=== PATIENT | male | born 1960 | race Caucasian/White ===

== ENCOUNTER 2024-05-24 08:54 | Emergency (ER) | payer OTHER, MEDICARE, SELFPAY ==
[2024-05-24 09:02] VITALS: BP 153/75
[2024-05-24 09:27] VITALS: BMI 24.0
[2024-05-24 09:30] VITALS: BP 126/75
--- NOTE | 2024-05-24 09:31 | ED.GENMED ---
History of Present Illness
General
Chief Complaint: Chest Pain
Source: patient
Time Seen by Provider: 05/24/24 09:04
History of Present Illness
History of Present Illness:
64yoM with a history of type 2 diabetes and hyperlipidemia presenting for evaluation of chest pain. Symptoms initially started 3 days ago while he was sitting. He reports a discomfort in his left chest. The discomfort is hard for him to describe
but he states it feels like 'something is there.' The symptoms are intermittent over the past several days and have occurred about 3-4 times. The pain typically last for several minutes before resolving. Nothing seems to make the pain come on and
nothing seems to make the pain better or worse. He had a weird feeling in his left upper arm yesterday. He has not had any chest pain today. He denies any associated diaphoresis, nausea, vomiting, shortness of breath, dizziness, paresthesias. No
prior history of coronary artery disease and he has never seen a retail pos specialist before.
Past History
Past History
ED Past Medical History: Cancer (Skin cancer), Hypercholesterolemia and NIDDM
ED Past Surgical History: Other
Social History
Tobacco: Non-smoker
Alcohol: Other
Personal: Other
Living: with family
Employment: Employed
Family History
Family History: Other
Phy Exam
General Physical Exam
General Presentation: well appearing and no apparent distress
General age: appears stated age
General Skin: warm and dry
General Habitus: normal
General Mental: alert
General Hydration: appears well hydrated
ENT Exam
ENT Exam: normocephalic
Cardiovascular Exam
Cardiovascular Exam: regular rate/rhythm, no edema, no murmur and normal peripheral pulses (2+ radial pulses bilaterally)
Pulmonary Exam
Pulmonary Exam: lungs clear, no respiratory distress, no rales, no crackles, no rhonchi and no wheezing
Neurological Exam
Neurological Exam: alert
[place] Coma Scale
Eye Opening: Spontaneous
Verbal Response: Oriented
Motor Response: Obeys Commands
GCS Total Score: 15
Skin Exam
Skin Exam: normal color and warm/dry
Psychiatric Exam
Psychiatric Exam: normal mood/affect
Scores
Heart Score for Chest Pain Patients
STEMI patient?: No
History: Moderately Suspicious
ECG: Normal
Age: >/= 65 years
Risk Factors: 1 or 2 Risk Factors
Troponin: </= Normal Limit
Heart Score for Chest Pain Patients: 4
Heart Score Risk: 20.3% MACE over next 6 weeks
Course
Orders/Labs/Results
Orders:
Orders
05/24/24 08:55
ECG [Electrocardiogram (*1)] Urgent
Reason for Study: Chest Pain
EKG- Treatment ONCE
05/24/24 09:30
Cardiac Monitoring- Treatment ONCE
05/24/24 09:31
CBC/With Diff [Complete Blood Count/With Diff] Urgent
CMP [Comprehensive Metabolic Panel] Urgent
Troponin I Urgent
CR Chest - 2 Views Urgent
Comment:
Reason For Exam: CP
Abnormal Lab Results
05/24/24
09:31
RBC 4.29 L 10^6/uL
(4.70-6.10)
MCV 94.4 H fL
(80.0-94.0)
MCH 32.2 H pg
(27.0-31.0)
Absolute Eos (auto) 0.9 H 10^3/uL
(0-0.7)
Eosinophils % 11.0 H %
(0-6)
BUN 27 H mg/dl
(9-20)
Glucose 172 H mg/dl
(70-99)
05/24/24 09:31
05/24/24 09:31
Vital Signs
Initial and Last Documented VS:
Initial Vital Signs
Temp Pulse BP Pulse Ox
98 F 74 153/75 98
05/24/24 09:02 05/24/24 09:02 05/24/24 09:02 05/24/24 09:02
Last Documented Vital Signs
Temp Pulse Resp BP Pulse Ox
98 F 74 16 121/73 97
05/24/24 09:02 05/24/24 10:30 05/24/24 10:30 05/24/24 10:06 05/24/24 10:30
MDM/Problems Addressed
Differential Diagnosis Includes:
64yoM here with intermittent chest discomfort x several days. Seems to come on randomly. No exertional symptoms. Lasts several minutes at a time. Asymptomatic currently. No associated n/v, SOB, diaphoresis. Hx of T2DM. VSS. He is well appearing in
no distress. Exam is reassuring. Differential diagnosis includes but is not limited to: ACS, stable angina, pneumonia, arrhythmia, nonspecific chest pain, less likely PE
Initial ED plan: Check cardiac labs, EKG, and CXR.
*EKG
Interpreted by ED Provider?: Yes
EKG Intrepretation Date: 05/24/24
Heart Rate: 69
Rate: normal
Rhythm: sinus
[place]: normal axis
Interval: normal interval
QRS Pattern: normal QRS
Ischemia: no ischemia
*Critical Care Note
Total Time (30-74mins, 75-104mins- exclusive of procedures): Not Applicable
Update Note
Update Note:
EKG shows NSR without ischemic changes and troponin is WNL. Remainder of labs unremarkable. CXR is clear. He continues to be asymptomatic on reassessment. No indication for hospitalization at this time. Given risk factors, will refer to cardiology
for f/u. Strict ED return precautions discussed. He expressed understanding and is in agreement with plan. He was discharged in stable condition.
ED Attending Note
-
Portions of this chart may have been created with voice recognition software.� Occasional wrong word or��sound alike� substitutions may have occurred due to the inherent limitations of voice recognition software.
Discharge Plan
Departure
Patient Disposition: Home (Routine Discharge)
Date of Disposition: 05/24/24
Time of Disposition: 10:39
Patient with high blood pressure during this ER visit?: No
Discharge Problem:
Chest pain
Instructions: Chest Pain CBC Follow Up
Prescriptions:
No Action
multivitamin Tablet
1 tab PO DAILY
metformin 500 mg Tablet
500 mg PO AC
glipizide 10 mg Tablet Extended Release 24hr
10 mg PO DAILY
Fish Oil Capsule
1,000 mg PO DAILY
rosuvastatin 20 mg Tablet
20 mg PO HS
Januvia 100 mg Tablet
100 mg PO DAILY
mecobalamin (vitamin B12) 1,000 mcg Tablet,Chewable
1,000 mcg PO DAILY
aspirin 81 mg Capsule
81 mg PO DAILY
tadalafil 10 mg Tablet
10 mg PO DAILY PRN (Reason: ED)
oxycodone 5 mg tablet
5 mg PO Q4HPRN PRN (Reason: moderate to severe pain) Qty: 14 0RF
Rx Instructions:
OK to take 2 if needed
Referrals:
Maggi Walton CRNP [Family Provider] -
David Kahn MD [Active] -
Activity Restrictions/Additional Instructions:
Please call today to schedule a follow-up with your family doctor and cardiology. Return to the ER with any new or worsening symptoms.
Interventions
Interventions:
*Risk Screen - Suicide Last Done: 05/24/24 09:03
*General Assessment Last Done: 05/24/24 09:28
*Neglect/Abuse Screening Last Done: 05/24/24 09:03
*ED COVID-19 Vaccine History Last Done: 05/24/24 09:28
*Nursing Disposition Last Done: 05/24/24 10:45
ED- Cardiac Assessment Last Done: 05/24/24 09:28
Discharge Date and Time
Discharge Date/Time: 05/24/24 10:49
Print Language: BENINESE
[2024-05-24 09:49] LABS: % Basophils 0.8 % (0-2); % Immature Granulocytes 0.4 % (0-0.5); % Lymphocytes 20.8 % (20.5-51.1); % Monocytes 7.3 % (1.7-9.3); % Neutrophils 59.7 % (42.2-75.2); Absolute Basophils 0.1 10^3/uL (0-0.2); Absolute Eosinophils 0.9 10^3/uL (0-0.7); Absolute Lymphocytes 1.8 10^3/uL (1.2-3.4); Absolute Monocytes 0.6 10^3/uL (0.1-0.6); Absolute Neutrophils 5.1 10^3/uL (1.4-6.5); Hematocrit 40.5 % (39.0-52.0); Hemoglobin 13.8 g/dL (13.0-18.0); Mean Corp Hgb Conc. 34.1 g/dL (33.0-37.0); Mean Corpuscular Hgb 32.2 pg (27.0-31.0); Mean Corpuscular Volume 94.4 fL (80.0-94.0); Mean Platelet Volume 10.1 fL (7.4-10.4); Nucleated Red Blood Cells % 0 % (-); Platelet Count 203 10^3/uL (130-400); Red Blood Cell Count 4.29 10^6/uL (4.70-6.10); Red Cell Dist. Width 13.1 % (11.5-14.5); White Blood Cell Count 8.5 10^3/uL (4.8-10.8)
[2024-05-24 10:06] VITALS: BP 121/73
[2024-05-24 10:08] LABS: ALT (SGPT) 25 U/L (0-50); AST (SGOT) 20 U/L (17-59); Albumin 4.8 g/dl (3.5-5.0); Alkaline Phosphatase 57 U/L (38-126); Blood Urea Nitrogen 27 mg/dl (9-20); Calcium 9.7 mg/dl (8.4-10.2); Carbon Dioxide 28 mmol/L (22-30); Chloride 100 mmol/L (98-107); Estimated Creatinine Clearance 92 ml/min; Glucose 172 mg/dl (70-99); Potassium 4.8 mmol/L (3.5-5.1); Sodium 138 mmol/L (135-145); Total Bilirubin 0.3 mg/dl (0.2-1.3); Total Protein 7.4 g/dl (6.3-8.2); eGFR > 60.00
[2024-05-24 10:13] LABS: Troponin I < 0.012 ng/ml
== END 2024-05-24 10:49 | disposition home or self-care (01) ==
LOC: EMR 08:54
PROVIDERS: Physician Assistant; EMERGENCY PHYSICIAN Emergency Medicine; FAMILY PHYSICIAN Nurse Practitioner Family
DX: R07.89 Other chest pain (principal); E78.00 Pure hypercholesterolemia, unspecified; E11.9 Type 2 diabetes mellitus without complications
CPT/HCPCS: 99285; 71046; 80053; 84484; 85025; 93005

== ENCOUNTER → 2024-06-08 07:37 | Outpatient (REF) | payer OTHER, SELFPAY | LOC: DHCBC/DCA 07:37 | PROVIDERS: ATTENDING PHYSICIAN Internal Medicine; FAMILY PHYSICIAN Nurse Practitioner Family | DX: R07.9 Chest pain, unspecified (principal) | CPT/HCPCS: 78452; 93017; A9500 ==

== ENCOUNTER → 2024-06-09 09:16 | Outpatient (REF) | payer OTHER, SELFPAY | LOC: HWRCS 09:16 | PROVIDERS: ATTENDING PHYSICIAN Internal Medicine; FAMILY PHYSICIAN Nurse Practitioner Family | DX: R07.9 Chest pain, unspecified (principal) | CPT/HCPCS: 93306 ==

== ENCOUNTER 2024-06-18 07:18 | Day surgery (SDC) | payer OTHER, SELFPAY ==
[2024-06-18] VITALS (15 sets, daily range): BP systolic 106–134; BP diastolic 67–94; BMI 24.2
[2024-06-18 08:15] LABS: Glucose - Point of Care 140 mg/dl (70-99)
[2024-06-18 09:30] LABS: ACT-LR - POC 310 Seconds (116-155)
--- NOTE | 2024-06-18 17:43 | ITS.CL.PN ---
Economics Professor - Procedure Note
Procedure
Procedure Note:
CARDIAC CATHETERIZATION REPORT
Date of Procedure: 06/18/2024
Referring: Dr. Gavin Dent MD
Indication: chest pain, abnormal nuclear stress test
PROCEDURE(S)
1. left heart catheterization
2. coronary angiography
ACCESS: 6F right radial artery (closure: radial band)
CATHETERS
1. 6F JL3.5
2. 6F JR4
HEMODYNAMIC DATA
LV 127/4 (EDP 10) mmHg
AO 124/73 (mean 90) mmHg
CORONARY ANGIOGRAPHY
Dominance: right
LM: Large with mild disease
LAD: Large vessel giving rise to a small D1 and trifurcating D2. Just before the takeoff of D2, there is a 60% eccentric stenosis (best seen in SYED cranial). This was further interrogated by iFR.
LCx: Large vessel giving rise to a small OM1, moderate caliber OM 2, and large OM 3. There is a 95% ostial stenosis, and a 90% stenosis before the takeoff of OM 2.
RCA: Large vessel giving rise to a moderate caliber RPDA, moderate caliber RPL 1, and small RPL 2. There is a smooth 80% stenosis in the mid RCA and otherwise mild disease.
iFR of LAD
An Omni wire was flushing and zeroed outside the body and then advanced to the mid LAD. The wire introducer was removed and the system flush, after which pressure of the wire and guide were normalized. The wire was advanced to the mid LAD and iFR
recorded at 0.84, 0.85, and 0.86. iFR pullback was performed noting a focal pattern with nearly the entire contribution located at the lesion of interest. On return to the left main, iFR appropriately normalized to ~1.0, confirming lack of wire
drift. The wire and guide were removed.
RADIATION: dose for 31 mGy; DAP 25.1 Gy*cm2; fluoroscopy time 5.4 min
CONCLUSIONS
1. severe multivessel coronary artery disease in a diabetic patient
2. normal LV filling pressure and no gradient across the aortic valve
RECOMMENDATIONS
1. expectant management after cardiac catheterization via right radial approach
2. referral for coronary artery bypass grafting, with consideration of grafts to the LAD, circumflex OM, and RPDA.
3. aggressive secondary prevention of coronary artery disease
Copy to: Dr. Gavin Dent MD (architecture instructor); APZ Rhodes (PCP)
Signed: Milo Ma MD, PhD
== END 2024-06-18 13:16 | disposition home or self-care (01) ==
LOC: CATH 07:18
PROVIDERS: ATTENDING PHYSICIAN Student in an Organized Health Care Education/Training Program; CONSULT PHYSICIAN Thoracic Surgery (Cardiothoracic Vascular Surgery)
DX: R07.9 Chest pain, unspecified (principal); I25.10 Atherosclerotic heart disease of native coronary artery without angina pectoris; E78.00 Pure hypercholesterolemia, unspecified; E11.9 Type 2 diabetes mellitus without complications; Z85.828 Personal history of other malignant neoplasm of skin; Z79.82 Long term (current) use of aspirin; Z79.84 Long term (current) use of oral hypoglycemic drugs
CPT/HCPCS: 93799; C1894; C1769; 82962; 85347; 93458; Q9967

== ENCOUNTER → 2024-07-09 08:10 | Outpatient (REF) | payer OTHER, SELFPAY | LOC: HWRAD 08:10 | PROVIDERS: ATTENDING PHYSICIAN Thoracic Surgery (Cardiothoracic Vascular Surgery); FAMILY PHYSICIAN Nurse Practitioner Family | DX: Z01.810 Encounter for preprocedural cardiovascular examination (principal) | CPT/HCPCS: 71250 ==

== ENCOUNTER 2024-07-15 04:53 | Inpatient (IN) | payer OTHER, SELFPAY ==
[2024-07-13 08:33] VITALS: BMI 23.3
[2024-07-13 09:22] LABS: % Basophils 0.5 % (0-2); % Eosinophils 1.5 % (0-6); % Immature Granulocytes 0.4 % (0-0.5); % Lymphocytes 19.2 % (20.5-51.1); % Monocytes 7.1 % (1.7-9.3); % Neutrophils 71.3 % (42.2-75.2); Absolute Eosinophils 0.1 10^3/uL (0-0.7); Absolute Lymphocytes 1.6 10^3/uL (1.2-3.4); Absolute Monocytes 0.6 10^3/uL (0.1-0.6); Absolute Neutrophils 5.9 10^3/uL (1.4-6.5); Hematocrit 38.1 % (39.0-52.0); Hemoglobin 12.9 g/dL (13.0-18.0); Mean Corp Hgb Conc. 33.9 g/dL (33.0-37.0); Mean Corpuscular Hgb 31.8 pg (27.0-31.0); Mean Corpuscular Volume 93.8 fL (80.0-94.0); Mean Platelet Volume 9.7 fL (7.4-10.4); Nucleated Red Blood Cells % 0 % (-); Platelet Count 196 10^3/uL (130-400); Red Blood Cell Count 4.06 10^6/uL (4.70-6.10); Red Cell Dist. Width 12.4 % (11.5-14.5); White Blood Cell Count 8.2 10^3/uL (4.8-10.8)
[2024-07-13 09:25] LABS: Urine Albumin Trace (Neg - Trace); Urine Bilirubin Negative (Negative); Urine Character Clear (Clear); Urine Color Yellow; Urine Glucose Negative (Negative); Urine Ketone Negative (Negative); Urine Leukocyte Negative (Negative); Urine Nitrite Negative (Negative); Urine Occult Blood 1+ (Negative); Urine Specific Gravity 1.025 (<1.030); Urine Urobilinogen Negative (Neg - 1+)
[2024-07-13 09:33] LABS: Urine Bacteria Few (Negative); Urine Red Blood Cell 0-2 /HPF (0-2); Urine Squamous Cell 0-2 /LPF (Few); Urine White Cell 0-2 /HPF (0-5)
[2024-07-13 09:43] LABS: INR 1.11; PT 14.6 Sec (11.4-14.6)
[2024-07-13 09:44] LABS: APTT 34.9 Sec (23.4-35.0)
[2024-07-13 10:01] LABS: ALT (SGPT) 35 U/L (0-50); AST (SGOT) 24 U/L (17-59); Albumin 4.6 g/dl (3.5-5.0); Alkaline Phosphatase 51 U/L (38-126); Blood Urea Nitrogen 24 mg/dl (9-20); Calcium 9.1 mg/dl (8.4-10.2); Carbon Dioxide 25 mmol/L (22-30); Chloride 103 mmol/L (98-107); Direct Bilirubin 0.1 mg/dl (0.0-0.4); Estimated Creatinine Clearance 104 ml/min; Glucose 121 mg/dl (70-99); Potassium 4.7 mmol/L (3.5-5.1); Sodium 138 mmol/L (135-145); Total Bilirubin 0.4 mg/dl (0.2-1.3); Total Protein 7.1 g/dl (6.3-8.2); eGFR > 60.00
--- NOTE | 2024-07-13 10:24 | CM ---
pt gave verbal consent for to run SPT labs, due to his microfilm technician being stuck while drawing his labs. he understands we are running tests for HIV and Hep B/C.
--- NOTE | 2024-07-13 10:35 | CM ---
Chart reviewed. Met with the patient in PAT. 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 He has a roommate, but his girlfriend will also be staying with him after surgery. Patient
lives in a split level home, 5 CHICA, 0 DME. Reviewed preoperative and postoperative instructions and restrictions, along with showering guidelines. Gave patient 2 soaps. Patient is agreeable to a home visit by CT Transitional RN. Plan is for the
patient to return home with CT Transitional RN.
[2024-07-13 10:47] LABS: Glycohemoglobin (HgbA1c) 6.4 % (4.0-5.6)
[2024-07-13 11:36] LABS: Hepatitis B Surface Antigen Negative (Negative)
[2024-07-13 11:44] LABS: HIV Combo Negative (Negative)
[2024-07-13 11:53] LABS: Hepatitis C Antibody Negative (Negative)
[2024-07-15] VITALS (11 sets, daily range): BP systolic 88–121; BP diastolic 57–74; BMI 22.5
[2024-07-15] MEDS: MAGNESIUM OXIDE 500 MG PO (05:40)
[2024-07-15] MEDS: PROTONIX 40 MG PO (05:40)
[2024-07-15] MEDS: LOPRESSOR 25 MG PO (05:40)
[2024-07-15] MEDS: BACTROBAN 2% OINTMENT 1 APPLIC NASAL ×2 (05:41→19:48)
--- NOTE | 2024-07-15 06:00 | PTCARENOTE ---
pt admitted into CVICU room 2261. pt confirmed 2 CHG showers at home. pt clipped and prepped for CABG. pre-op meds given. pre-op education provided. questions answered. electronic health records specialist to [facility].
[2024-07-15 07:43] LABS: ACT+ - POC 101 Seconds (82-134)
[2024-07-15 08:14] LABS: Urine Albumin Negative (Neg - Trace); Urine Bilirubin Negative (Negative); Urine Character Clear (Clear); Urine Color Straw; Urine Glucose Negative (Negative); Urine Ketone Negative (Negative); Urine Leukocyte Negative (Negative); Urine Nitrite Negative (Negative); Urine Occult Blood Negative (Negative); Urine Urobilinogen Negative (Neg - 1+)
[2024-07-15 09:38] LABS: ACT+ - POC 535 Seconds (82-134)
[2024-07-15 10:12] LABS: B.E. - POC -1.7 mmol/L; Glucose - POC 133 mg/dl (70-99); HCO3 - POC 23 mmol/L (21-28); Hematocrit - POC 34 % PCV (42-52); Hemodilution- POC No; Hemoglobin Calculated - POC 11.6; Ionized Calcium - POC 1.19 mmol/L (1.15-1.33); O2 Saturation %Calculated-POC 99.9 % (94-98); PCO2 - POC 37 mmHg (35-48); PO2 - POC 299 mmHg (83-108); Sodium - POC 142 mmol/L (136-145); Specimen Type - POC Arterial; pH - POC 7.39 (7.35-7.45)
[2024-07-15 10:25] LABS: ACT+ - POC 673 Seconds (82-134)
[2024-07-15 10:41] LABS: B.E. - POC 1.3 mmol/L; Glucose - POC 271 mg/dl (70-99); HCO3 - POC 27 mmol/L (21-28); Hematocrit - POC 36 % PCV (42-52); Hemodilution- POC Yes; Hemoglobin Calculated - POC 12.2; Ionized Calcium - POC 1.06 mmol/L (1.15-1.33); O2 Saturation %Calculated-POC 99.8 % (94-98); PCO2 - POC 45 mmHg (35-48); PO2 - POC 224 mmHg (83-108); Potassium - POC 6.1 mmol/L (3.5-5.1); Sodium - POC 138 mmol/L (136-145); Specimen Type - POC Arterial; pH - POC 7.39 (7.35-7.45)
[2024-07-15 10:54] LABS: ACT+ - POC 580 Seconds (82-134)
[2024-07-15 11:19] LABS: B.E. - POC -1.5 mmol/L; Glucose - POC 238 mg/dl (70-99); HCO3 - POC 24 mmol/L (21-28); Hematocrit - POC 29 % PCV (42-52); Hemodilution- POC Yes; Hemoglobin Calculated - POC 9.9; Ionized Calcium - POC 1.01 mmol/L (1.15-1.33); PCO2 - POC 44 mmHg (35-48); PO2 - POC 382 mmHg (83-108); Potassium - POC 4.5 mmol/L (3.5-5.1); Sodium - POC 142 mmol/L (136-145); Specimen Type - POC Arterial; pH - POC 7.35 (7.35-7.45)
[2024-07-15 11:34] LABS: ACT+ - POC 501 Seconds (82-134)
[2024-07-15 11:55] LABS: B.E. - POC -0.8 mmol/L; Glucose - POC 181 mg/dl (70-99); HCO3 - POC 25 mmol/L (21-28); Hematocrit - POC 33 % PCV (42-52); Hemodilution- POC Yes; Hemoglobin Calculated - POC 11.1; Ionized Calcium - POC 1.08 mmol/L (1.15-1.33); PCO2 - POC 43 mmHg (35-48); PO2 - POC 385 mmHg (83-108); Sodium - POC 142 mmol/L (136-145); Specimen Type - POC Arterial; pH - POC 7.37 (7.35-7.45)
[2024-07-15 12:08] LABS: ACT+ - POC 441 Seconds (82-134)
[2024-07-15] MEDS: ANCEF 10 IV ×2 (12:26→16:48)
[2024-07-15 12:44] LABS: B.E. - POC -0.6 mmol/L; Glucose - POC 155 mg/dl (70-99); HCO3 - POC 25 mmol/L (21-28); Hematocrit - POC 33 % PCV (42-52); Hemodilution- POC Yes; Hemoglobin Calculated - POC 11.2; Ionized Calcium - POC 1.09 mmol/L (1.15-1.33); O2 Saturation %Calculated-POC 99.9 % (94-98); PCO2 - POC 43 mmHg (35-48); PO2 - POC 272 mmHg (83-108); Potassium - POC 3.8 mmol/L (3.5-5.1); Sodium - POC 144 mmol/L (136-145); Specimen Type - POC Arterial; pH - POC 7.37 (7.35-7.45)
[2024-07-15 12:49] LABS: ACT+ - POC 104 Seconds (82-134)
--- NOTE | 2024-07-15 13:05 | CON.INTV ---
Consultation
Consultation Request
Date/Time Consultation Requested: 07/15/2024 - 1251
Date/Time Consultation Performed: 07/15/2024 - 1302
Requesting Provider: Aroldo Toribio PA-C
Performing Provider: Dr. Hammond
Reason for Consultation: s/p CABG
Medical History
-
Chief Complaint: Elective CABG
History of Present Illness:
64-year-old male former tobacco smoker (quit 15 years ago) with a past medical history of DM type II, hypercholesterolemia, ED, and multivessel CAD who presents with elective CABG. Patient known to the cardiothoracic surgery service with last visit
on 06/29/[address] Franklin. Patient has known multivessel CAD which was showing on left heart catheterization on 06/18/2024, showing 60% eccentric stenosis in the LAD, 95% ostial stenosis of the LCx, 90% stenosis just before the OM 2 takeoff, and
80% stenosis in the mid RCA. Of note, he had normal LV filling pressures with LVEDP: 10 mmHg. Surgical revascularization was discussed including its risks and benefits and patient agreed for intervention. Today he underwent a CABG x 4 with left
atrial appendage exclusion with a 40 mm AtriClip. He tolerated the procedure well with no complications, and was transferred to the CVICU postoperatively for further care. Trash Truck Driver services consulted for additional management/recommendations.
When I saw the patient, he was resting in bed, intubated on SIMV: 12/500/40%/5 with PS: 5. His PIP was 17 cmH2O, VTe 517 mL and breathing at 12 breaths/min. Heart rate 64, BP 98/54 on Levophed at 5mcg/min, and saturating 100%. He was being
sedated on Precedex at 0.5mcg/kg/hr.
PMHx: Multivessel CAD, DM type II, hypercholesterolemia, ED and family history of A-fib
PSHx: Back lipoma excision, multiple Mohs procedures, wisdom teeth extraction, laparoscopic left inguinal hernia repair (11/2022)
Past Medical History
Past Medical History: Other (Above as per HPI)
Past Surgical History: Other (Above as per HPI)
Social History
Tobacco: Former Smoker (Quit 15 years ago)
Alcohol: Other (Rare use)
Drug: None
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
Family History
Family History: CAD (Maternal uncle: History of RI) and Other (Father: Stroke, history of ventricular tachycardia; maternal uncle: History of 2 'mini-strokes'; family history of atrial fibrillation)
Allergies / Home Medications
Allergies
Allergy/AdvReac Type Severity Reaction Status Date / Time
No Known Allergies Allergy Verified 07/09/24 10:17
Home Medications
�Medication �Instructions �Recorded �Confirmed �Last Taken �Type
aspirin 81 mg capsule 81 mg PO DAILY 11/22/22 07/15/24 07/14/24 08:00 History
mecobalamin (vitamin B12) 1,000 1,000 mcg PO DAILY 11/22/22 07/15/24 07/08/24 History
mcg chewable tablet
metformin 500 mg tablet 500 mg PO AC 11/22/22 07/15/24 07/14/24 18:00 History
multivitamin 1 tab PO DAILY 11/22/22 07/15/24 07/08/24 History
rosuvastatin 20 mg tablet 20 mg PO QPM 11/22/22 07/15/24 07/14/24 18:00 History
sitagliptin phosphate 100 mg 100 mg PO QPM 11/22/22 07/15/24 07/14/24 20:00 History
tablet (Januvia)
glipizide 5 mg tablet, extended 5 mg PO DAILY 06/18/24 07/15/24 07/14/24 08:00 History
release 24 hr
metoprolol succinate 25 mg 25 mg PO DAILY #90 tabs 06/18/24 07/15/24 07/14/24 10:00 Rx
tablet,extended release 24 hr
nitroglycerin 0.4 mg sublingual 0.4 mg sublingual [id number] PRN 06/18/24 07/15/24 Unknown Rx
tablet chest pain #25 tabs
omega-3 fatty acids 1 cap PO DAILY 07/09/24 07/15/24 07/08/24 History
Review of Systems
-
Unable to Obtain full review of systems at this time due to: Patient Intubation
Vitals / Labs / Diagnostic Testing
Vital Signs
Temp Pulse Resp BP Pulse Ox
97.8 F 63 16 121/60 96
07/15/24 05:12 07/15/24 05:40 07/15/24 05:12 07/15/24 05:40 07/15/24 05:12
Microbiology
07/13/24 08:43 Nose MRSA Screen - Final
No Methicillin Resistant Staphylococcus aureus isolated.
Diagnostic Testing:
Physical Exam
-
HEENT: Normocephalic, Anicteric and Other (ETT in place)
Cardiovascular: S1/S2 and Peripheral Edema (negative)
Respiratory: Wheeze (negative), Rales (negative), Rhonchi (negative), Non-Labored Respirations, Other (Mechanical breath sounds heard bilaterally) and Other (Bilateral pleural chest tubes + mediastinal chest tubes x 2)
GI: Soft, Non Distended, Non Tender and Normal Bowel Sounds
Neurology: Tremors (negative) and Other (Sedated)
Skin: Warm and Dry
General: Respiratory Distress (negative), Comfortable, Fever (negative) and Chills (negative)
Assessment
-
Assessment: 64-year-old male former tobacco smoker (quit 15 years ago) with a past medical history of DM type II, hypercholesterolemia, ED, and multivessel CAD who presents with elective CABG. Patient known to the cardiothoracic surgery service
with last visit on 06/29/[address] Franklin. Patient has known multivessel CAD which was showing on left heart catheterization on 06/18/2024, showing 60% eccentric stenosis in the LAD, 95% ostial stenosis of the LCx, 90% stenosis just before the OM
2 takeoff, and 80% stenosis in the mid RCA. Of note, he had normal LV filling pressures with LVEDP: 10 mmHg. Surgical revascularization was discussed including its risks and benefits and patient agreed for intervention. On 07/15/2024, he underwent
a CABG x 4 with left atrial appendage exclusion with a 40 mm AtriClip. He tolerated the procedure well with no complications, and was transferred to the CVICU postoperatively for further care. Trash Truck Driver services consulted for additional
management/recommendations.
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
Impression:
#Multivessel CAD s/p CABG x 4 (POD #0)
#Family history of atrial fibrillation s/p left atrial appendage exclusion with 40 mm AtriClip (POD #0)
#Acute anemia due to above
#DM type II c/b mild hyperglycemia (HbA1c: 6.4 on 07/13/2024)
#Hypocalcemia
#Hypercholesterolemia
#Erectile dysfunction
Plan:
Ventilator settings reviewed
FiO2 will be weaned to maintain SpO2 >90-94%
Minute ventilation will be adjusted
Arterial blood gases will be monitored
Spontaneous breathing trial will be attempted with hopeful extubation after anesthesia/sedation wear off
prn nebulized bronchodilators � not currently bronchospastic
Pulmonary artery catheter parameters will be followed
Pressors/antihypertensive/inotropes/diuretics will be provided as needed
Maintain MAP>65
Replete electrolytes with K>4, Mg>2
Monitor chest tube output (bilateral pleural chest tubes + mediastinal chest tubes x 2)
Monitor hemoglobin
Monitor platelet count and coags
Transfuse blood products as needed to maintain Hb>7g/dL, plt>50k (given post-operative status)
CT surgery managing chest tubes
Monitor blood sugar to maintain euglycemia with goal BG 140-180
Insulin drip per protocol
Aspiration precautions
VAP prevention protocol
DVT prophylaxis
Early nutrition
Early mobilization
Critical care statement: A total of 37 minutes of critical care time was provided for this patient today. This includes management of ventilator, spontaneous breathing trial, arterial blood gases, pressors, of unstable vital signs, evaluation of the
patient at bedside, reviewing the patient's pertinent medical records including radiographs, microbiology, laboratory evaluations, and discussion with primary team and critical care nursing.
--- NOTE | 2024-07-15 13:06 | PN.DE.MGMTRT ---
Insulin Management
- -
07/15/2024: Diabetes Management Consult
64 year old male admitted for elective CABG s/p cardiac cath on 06/18/27 that showed severe multivessel CAD. PMH: HTN, HLD, CAD and T2DM.
Pt was taking Glipizide 5mg daily, Metformin 500mg AC and Januvia 100mg daily ENGINE DYNAMOMETER TESTER. A1C 6.4%, Cr 0.8, eGFR >60
Pt is POD 0, s/p CABG x5. Currently on glycemic protocol, sugars are stable w/o elevations 136-170 requiring 1.5-7 units of insulin/hr.
Cont insulin infusion postoperatively x48 hrs. Start Farxiga 10 mg daily in am. Will closely follow for readiness to transition, ideally to oral regimen 48hrs post-op.
W ill follow up in am.
Diabetes History
- -
Type of Diabetes: 2
Pre-Admission Diabetes Regimen
Lab Results
Hemoglobin A1c 6.4 % (4.0-5.6) H 07/13/24 08:43
Insulin Pump Settings
IP Diabetes Regimen
Patient Education
--- NOTE | 2024-07-15 13:50 | W.CVOR.SURPR ---
[facility] Surgeon Immed Pre Op
-
I have examined this patient prior to performance of the scheduled procedure.
The patient's condition is unchanged from the time of the dictated/written History and
Physical and the patient is able to undergo the scheduled procedure.
--- NOTE | 2024-07-15 13:50 | W.IMMPOSTOP ---
Addendum entered and electronically signed by Amanuel Franklin MD 07/15/24 15:01:
[id number]
Original Note:
Surgical Immed Post Op Note
-
CARDIAC SURGERY OPERATIVE NOTE:
Preoperative Dx:
MVCAD
FHx of AF
Postoperative Dx:
Same
Minor coagulopathy
Procedures:
1) Median sternotomy
2) Takedown of SOLITARIO (narrow pedicle)
3) Endoscopic harvest/prep of RLE GSV
4) CABG x 4 (SOLITARIO to LAD, GSV to RPDA, GSV to OM [upper branch], GSV to D)
5) ELAA w/ 40mm AtriClip
Surgeon:
Amanuel Franklin M.D.
Patient Relations Manager:
Shira Toribio P.A.-C.; medical research assistant throughout
Michelle Nguyen P.A.-C.; endoscopic harvest/prep of RLE GSV; [id number] closure
Anesthesia:
David Barragan M.D. and Godwin ArandaN.A.
Perfusion:
Nicole YoungbloodCAlissaP.; XC: 112min, CPB 158min
Findings:
Preoperatively w/ induction, pt. w/ vasoplegia requiring moderate dose levophed (6) - this requirement was maintained throughout the procedure
SOLITARIO was healthy appearing conduit w/ ELD 2.5mm, brisk blood flow
GSV was healthy appearing conduit w/ ELD 3.5mm
LAD was only visible at its most apical segment. It was identified by tracking back at the Diag-LAD junction (extremely calcified). I tracked distally to the mid LAD which was intramyocardial under approximately 3mm of myocardium. Normal bonner
at this location, ELD 2.75mm.
D was visible on the epicardial surface w/ very dense calcifications over its proximal and mid segments, ELD 2.25mm
OM was visible on the epicardial surface w/ normal bonner and scant scattered calcifications. Upper branch appeared better than lower branch for surgical bypass. ELD 1.75mm
RPDA was visible on the epicardial surface, moderately dense scattered calcifications, ELD 1.75mm
RAJIV was of windsock morphology
Good flow in all grafts on postoperative transit-time U/S flow probe assessment
Post-BJ: LVEF 50-55% w/o RWMA, normal RV, no sig VHD
Medical coagulopathy post-CPB requiring topical hemostatic agents and PLT transfusion w/ improvement
Complications:
None
Implants:
CT x 4 (B/L pleural, inferior mediastina, superior mediastinal)
Sternal wires x 10
Transfusions:
1pk PLTs
Condition:
63 sinus w/ isoelectric STs; 99/57 (MAP 72), CVP 8
GTTS: levophed 6, precedex 0.5, insulin OFF
Stable/guarded to CVICU
[2024-07-15 14:26] LABS: Glucose - Point of Care 86 mg/dl (70-99)
[2024-07-15 14:38] LABS: Hematocrit 29.3 % (39.0-52.0); Hemoglobin 9.9 g/dL (13.0-18.0); Platelet Count 152 10^3/uL (130-400)
[2024-07-15 14:43] LABS: B.E. -0.5 mmol/L; HCO3 24.9 mmol/L (21-28); Ionized Calcium 1.19 mMOL/L (1.15-1.33); O2 Saturation % 99.3 % (94-98); PCO2 43 mmHg (35-48); PO2 169 mmHg (83-108); Potassium 3.7 mMOL/L (3.5-5.1); Sodium 142 mMOL/L (136-145); pH 7.37 (7.35-7.45)
[2024-07-15] MEDS: NSS 500 IV (14:49)
[2024-07-15] MEDS: CALCIUM CHLORIDE 10% SYRINGE 500 MG IV (14:50)
[2024-07-15] MEDS: KCL 50 IV ×2 (14:51→16:50)
[2024-07-15 14:53] LABS: Blood Urea Nitrogen 23 mg/dl (9-20); Estimated Creatinine Clearance 115 ml/min; Glucose 81 mg/dl (70-99); Magnesium 2.8 mg/dl (1.6-2.3)
[2024-07-15] MEDS: NEURONTIN PO ×2 (14:57→16:48)
[2024-07-15] MEDS: TYLENOL PO (14:57)
--- NOTE | 2024-07-15 15:00 | PTCARENOTE ---
received patient from [facility] sedated and placed on vent by PRODUCTION ASSEMBLY OPERATOR. Out with usual lines, no wires. no swan. CTx4. CXR and EKG done bedside. Labs drawn and sent. SR on monitor. HR 60-70s. pulses palpable. no edema. CTs placed to -20 wall suction.
Occasional bubbling in pleural chest tube atrium. No crepitus. No air leak in med atrium. Draining red. Lungs diminished but clear. #8 ETT @24 R Lip. SIMV on vent pulse ox 100% on 40% o2. hypoactive bowel sounds. Daley draining clear yellow urine.
All surigcal sites c/d/i. Out on levo, precedex and insulin is off at this time. No family here for patient to update. will continue to monitor.
[2024-07-15 15:14] LABS: APTT 33.8 Sec (23.4-35.0); INR 1.36
[2024-07-15 15:31] LABS: Glucose - Point of Care 90 mg/dl (70-99)
--- NOTE | 2024-07-15 15:50 | W.PN.CD ---
Today's Communication / Plan
-
trend tele
Impression / Plan
-
64 yo male with PMH of CAD, hyperlipidemia, DM admitted following CABG x4 and AtriClip today.
# CAD s/p CABG 07/15
-rhythm: sinus
-BJ: EF 50-55%
-weaning from vent and drips
-plan is ASA, Plavix, metoprolol
# Hyperlipidemia
-goal LDL under 55
-continue rosuvastatin 20mg, and check lipids
# DM
-per primary team
Physical Exam
Vital Signs/Labs
Vital Signs
Temp Pulse Resp BP Pulse Ox
97.8 F 66 12 121/60 100
07/15/24 05:12 07/15/24 15:15 07/15/24 15:15 07/15/24 05:40 07/15/24 15:15
07/14/24 07/15/24 07/16/24
06:59 06:59 06:59
Actual Weight 80.2 kg 77.5 kg
07/15/24 14:22
PT 17.0 Sec (11.4-14.6) H 07/15/24 14:22
INR 1.36 07/15/24 14:22
APTT 33.8 Sec (23.4-35.0) 07/15/24 14:22
Magnesium 2.8 mg/dl (1.6-2.3) H 07/15/24 14:22
Physical Exam
Constitutional: No acute distress
EENT: Moist mucous membranes
Cardiovascular: Rhythm & rate is regular, Pedal edema is absent, JVD pressure is normal and Rub present
Respiratory: Other (mechanical ventilation)
Neuro/Psych: Other (weaning from sedation)
Data Reviewed
-
Date of Service: July 15, 2024
EKG: Other (Tele: NSR)
Echo: Report Reviewed by me
Labs: Labs Reviewed by me
--- NOTE | 2024-07-15 16:21 | PTCARENOTE ---
placed on CPAP by BLENDING COORDINATOR [id number]. tolerating well.
[2024-07-15 16:36] LABS: Glucose - Point of Care 130 mg/dl (70-99)
[2024-07-15] MEDS: PACERONE PO (16:48)
[2024-07-15 17:04] LABS: B.E. -2.7 mmol/L; HCO3 23.2 mmol/L (21-28); Ionized Calcium 1.31 mMOL/L (1.15-1.33); O2 Saturation % 98.9 % (94-98); PCO2 44 mmHg (35-48); PO2 186 mmHg (83-108); Potassium 4.9 mMOL/L (3.5-5.1); pH 7.33 (7.35-7.45)
[2024-07-15 17:07] LABS: Hematocrit 28.9 % (39.0-52.0); Hemoglobin 9.8 g/dL (13.0-18.0); Platelet Count 169 10^3/uL (130-400)
--- NOTE | 2024-07-15 17:14 | PTCARENOTE ---
extubated to 6L nc with PLANIMETER OPERATOR. pulse ox 100%. will continue to monitor.
[2024-07-15] MEDS: DILAUDID 0.5 MG IV (18:10)
[2024-07-15 18:15] LABS: Glucose - Point of Care 176 mg/dl (70-99)
[2024-07-15] MEDS: LR 250 ML IV ×2 (18:27→19:30)
[2024-07-15] MEDS: LEVOPHED 250 IV (19:35)
[2024-07-15 19:44] LABS: Glucose - Point of Care 169 mg/dl (70-99)
[2024-07-15] MEDS: ANCEF 5 IV (19:48)
[2024-07-15] MEDS: LOW STRENGTH ASPIRIN 81 MG PO (19:48)
[2024-07-15] MEDS: SENOKOT-S 1 TABLET PO (19:50)
--- NOTE | 2024-07-15 20:30 | PTCARENOTE ---
Patient received resting in bed, dozing intermittently. Patient's sister visited. Patient A+A+Ox3. No neurological deficits noted. No c/o headache, dizziness or lightheadedness. O2 2L via NC. SpO2 100%. Lungs diminished. No adventitious
breath sounds noted. Four chest tubes - Mediastinal x2 and Right and Left Pleural - Intact and patent - 20 ml red drainage - No air leak noted. Sinus Rhythm. Heart rate 70's. No c/o chest pain, pressure or discomfort. Levophed gtt. Abdomen
soft, nontender. Hypoactive bowel sounds. No BM. No c/o nausea. No vomiting. Tolerating ice chips and sips of water. Daley catheter - Temperature sensing - Yellow, clear urine - Outputs as documented. Positive Dorsalis pedis and Posterior
tibial pulses via Doppler. Positive, palpable radial pulses. Patient able to move all extremities without difficulty. Right [place] with [place] catheter. Left radial arterial line - Intact - Pressure bag/saline flush - Flushes without
difficulty - Waveform WNL. CVP 5. LR Bolus infusing. Insulin gtt - Glycemic Protocol. Patient with no c/o back or flank pain. Assessment as documented.
[2024-07-15 20:34] LABS: Glucose - Point of Care 163 mg/dl (70-99)
[2024-07-15 21:44] LABS: Glucose - Point of Care 122 mg/dl (70-99)
[2024-07-15] MEDS: PACERONE 200 MG PO (22:16)
[2024-07-15] MEDS: NEURONTIN 100 MG PO (22:16)
[2024-07-15] MEDS: TYLENOL 1000 MG PO (22:17)
[2024-07-15 22:34] LABS: Glucose - Point of Care 104 mg/dl (70-99)
[2024-07-15 23:10] LABS: Ionized Calcium 1.18 mMOL/L (1.15-1.33)
[2024-07-15] MEDS: DILAUDID 0.25 MG IV (23:14)
[2024-07-15] MEDS: CALCIUM GLUCONATE 100 IV (23:30)
[2024-07-15] MEDS: ROXICODONE PO (23:52)
[2024-07-15] MEDS: ROXICODONE 5 MG PO (23:57)
[2024-07-16] VITALS (22 sets, daily range): BP systolic 96–130; BP diastolic 54–73; BMI 22.9
[2024-07-16 00:03] LABS: Glucose - Point of Care 113 mg/dl (70-99)
--- NOTE | 2024-07-16 00:30 | PTCARENOTE ---
Patient A+A+Ox3. No neurological deficits noted. Ionized calcium ordered and sent - 1.18 - Calcium Gluconate 2grams/100ml over 1hr per PA order (Jaylen Hayes PA-C). IV Dilaudid 0.25mg and Roxicodone 5mg PO for pain management. No further
changes from previous assessment.
[2024-07-16] MEDS: ALBUMIN 5% 250 IV (00:50)
[2024-07-16] MEDS: DILAUDID 0.5 MG IV (01:44)
[2024-07-16 02:06] LABS: Glucose - Point of Care 111 mg/dl (70-99)
--- NOTE | 2024-07-16 02:15 | PTCARENOTE ---
5% Albumin 12.5 grams 250 ml 200 ml/hr - Ordered by PA - Infused without difficulty. IV Dilaudid 0.5 mg for pain management. CVP 5-6. Patient sleeping. Assessment/Interventions as documented.
[2024-07-16 03:14] LABS: Hematocrit 24.6 % (39.0-52.0); Hemoglobin 8.5 g/dL (13.0-18.0); Mean Corp Hgb Conc. 34.6 g/dL (33.0-37.0); Mean Corpuscular Volume 92.5 fL (80.0-94.0); Mean Platelet Volume 9.9 fL (7.4-10.4); Platelet Count 144 10^3/uL (130-400); Red Blood Cell Count 2.66 10^6/uL (4.70-6.10); Red Cell Dist. Width 12.6 % (11.5-14.5)
[2024-07-16 03:38] LABS: Blood Urea Nitrogen 23 mg/dl (9-20); Calcium 8.6 mg/dl (8.4-10.2); Carbon Dioxide 27 mmol/L (22-30); Chloride 106 mmol/L (98-107); Estimated Creatinine Clearance > 125 ml/min; Glucose 105 mg/dl (70-99); HDL Cholesterol 36 mg/dl; LDL Cholesterol, Calculated 24 mg/dl; Potassium 4.4 mmol/L (3.5-5.1); Sodium 139 mmol/L (135-145); Total Cholesterol 71 mg/dl (50-199); Triglyceride 59 mg/dl (10-149); Very Low Density Lipoprotein 11 mg/dl (0-30); eGFR > 60.00
[2024-07-16] MEDS: DILAUDID 0.25 MG IV ×2 (04:27→20:19)
[2024-07-16] MEDS: ANCEF 5 IV ×2 (04:27→12:26)
[2024-07-16 04:37] LABS: Glucose - Point of Care 82 mg/dl (70-99)
[2024-07-16] MEDS: NOVOLIN R INSULIN INFUSION 100 IV (04:39)
--- NOTE | 2024-07-16 05:15 | PTCARENOTE ---
Patient A+A+Ox3. No neurological deficits noted. No c/o headache, dizziness or lightheadedness. IV Dilaudid 0.25 mg for pain management. Patient given CHG bath and linens changed. Chest tube dressing changed. Levophed gtt at 4 mcq/min (15
ml/hr). Assessment/Interventions as documented.
--- NOTE | 2024-07-16 05:39 | W.PN.CT ---
Today's Communication / Plan
-
-pod #1
-no issues overnight
-drips: Levo 4, Insulin
-CT outputs: 2 meds 100/250, 2 pleur 140/270 in 12/24 hrs
-wean off Levo as tolerated
-continue Insulin
-d/c Daley
-current meds (ASA, Plavix, Amio, Crestor, Protonix). Held BB while on Levo
-encourage IS, OOB
Assessment / Plan
-
- Mv-CAD - s/p CABG x 4 (SOLITARIO to LAD, GSV to RPDA, GSV to OM [upper branch], GSV to D); ELAA w/ 40mm AtriClip on 07/15/24, pod #1
- Post-BJ: LVEF 50-55% w/o RWMA, normal RV, no sig VHD
- HTN
- HLD
- DM 2
- Former smoker, quit 15 yrs ago
- Skin CA - s/p Mohs
- ED
- FHx of AF
- Multiple small pulmonary nodules on chest CT
- 2.2 cm R adrenal mass
- Acute postop blood loss anemia - stable
- Acute intraop coagulopathy - s/p 1 unit platelets
- Acute postop vasoplegia
- Acute postop atelectasis
- Acute postop hypovolemia with subsequent hypervolemia
Discussed patient care with: Nursing and Care Team
Subjective
Procedure
- s/p CABG x 4 (SOLITARIO to LAD, GSV to RPDA, GSV to OM [upper branch], GSV to D); ELAA w/ 40mm AtriClip on 07/15/24
-
Date of Service: July 16, 2024
Objective Data
-
PT 17.0 Sec (11.4-14.6) H 07/15/24 14:22
INR 1.36 07/15/24 14:22
APTT 33.8 Sec (23.4-35.0) 07/15/24 14:22
Vital Signs
Vital Signs
Temp Pulse Resp BP Pulse Ox
99.0 F 65 16 97/62 100
07/16/24 00:00 07/16/24 00:15 07/16/24 00:15 07/16/24 00:00 07/16/24 00:15
CT Intake/Output/Weight
07/15/24 07/15/24 07/16/24
06:59 18:59 06:59
Intake Total 321.3 / 1075.7 754.4 / 1075.7
Output Total 810 / 1395 585 / 1395
Balance -488.7 / -319.3 169.4 / -319.3
SaO2: 100
Physical Exam
-
General: Awake and AOx3
Cardiovascular: Regular rate & rhythm, No Murmurs and No Rub
Respiratory: Decreased Breath Sounds
Sternum: Stable
Incision: Clean, Dry and Intact
Extremities: No Edema (difficult to feel DPs, dopplerable)
Abdomen: soft, nontender, nondistended, +decreased bowel sounds
Data Reviewed
-
Lab Results: Results Reviewed
Medications: Active Meds Reviewed
Chest X-Ray: Report Reviewed and Image Reviewed
ECG: Report Reviewed and Image Reviewed
[2024-07-16] MEDS: TYLENOL 1000 MG PO ×3 (05:54→22:23)
[2024-07-16] MEDS: LEVOPHED 250 IV (05:54)
[2024-07-16 06:08] LABS: Glucose - Point of Care 124 mg/dl (70-99)
--- NOTE | 2024-07-16 07:18 | W.PN.ANS.POP ---
Anesthesia Post Operative
- Anesthesia Post Op Note
Vital Signs Stable-See Nursing Note: Yes (on 4 mcg/min norepinephrine)
Airway Patent: Yes
Adequate Pain Control: Yes
Change in Mental Status: No
Current Postoperative Nausea & Vomiting: No
Anesthesia Complications: No
General Anesthetic Recall: No
Unplanned Admission: No
Post Op Hydration Adequate: Yes
--- NOTE | 2024-07-16 07:45 | PN.DE.MGMTRT ---
Addendum entered and electronically signed by PAZ Henry 07/16/24 15:09:
Discussed GLP-1 with pt earlier this morning during rounds and emphasized importance of GLP-1 use in patients with hx CAD and T2DM.
Pricing on GLP-1 completed by CM. Farxiga is $153 for a 30 day supply through the patient's prescription plan and Jardiance is $161 for a 30 day supply through the patient's prescription plan.
Per CM, pricing reviewed with the patient and he prefers to stay on his current oral regimen due to cost .
Will not start GLP1 at this time.
Original Note:
Insulin Management
- -
07/16/2024: Diabetes Management Follow up
64 year old male admitted for elective CABG s/p cardiac cath on 06/18/27 that showed severe multivessel CAD. PMH: HTN, HLD, CAD and T2DM.
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 State he was using CGM-Elijah 2 but insurance stopped coverage and he transitioned to using the [employer] meter. He monitors once a day. A1C 6.4%, Cr 0.8,
eGFR >60
Pt awake, alert, oriented, resting in bed, offers no complaints, able to discuss diabetes mgt
Pt is POD #1 s/p CABG x4. Currently on glycemic protocol, sugars are stable w/o elevations 136-170 requiring 1.5-7 units of insulin/hr.
Cont insulin infusion postoperatively x48 hrs. Start Farxiga 10 mg daily, 1st dose in am. Will ask CM to verify co-pay and coverage.
Will closely follow and reassess readiness to transition, ideally to his OP oral regimen 48hrs post-op.
Diabetes History
- -
Type of Diabetes: 2
Pre-Admission Diabetes Regimen
07/15/24 07/16/24
14:22 02:59
Creatinine 0.7 0.6 L
Lab Results
Hemoglobin A1c 6.4 % (4.0-5.6) H 07/13/24 08:43
Insulin Pump Settings
IP Diabetes Regimen
07/15/24 07/15/24 07/15/24
14:22 14:25 15:30
Glucose 81
POC Glucose 86 90
07/15/24 07/15/24 07/15/24
16:34 18:14 19:42
Glucose
POC Glucose 130 H 176 H 169 H
07/15/24 07/15/24 07/15/24
20:33 21:42 22:32
Glucose
POC Glucose 163 H 122 H 104 H
07/16/24 07/16/24 07/16/24
00:01 02:05 02:59
Glucose 105 H
POC Glucose 113 H 111 H
07/16/24 07/16/24
04:34 06:06
Glucose
POC Glucose 82 124 H
Patient Education
--- NOTE | 2024-07-16 08:00 | PTCARENOTE ---
Assumed care of patient from manufacturing shift supervisor RN. AAO x 3, sleepy this am but easily arousable. Pain well managed at this time. SR on monitor. Rt IJ cordis with slick intact. Lt radial A line transducing. Lines leveled, recalibrated, and flushed.
2 L NC 100%, Using IS to 500. Chest tubes x 4 to - 20 cm suction. No air leak or crepitus noted. Surgical sites c,d,i. DP pulses weakly palpable. No edema appreciated. Levophed infusing, along with Insulin per glycemic protocol. see flow sheet
for totals/titrations. Plan for day discussed.
[2024-07-16 08:20] LABS: Glucose - Point of Care 99 mg/dl (70-99)
[2024-07-16] MEDS: PLAVIX 75 MG PO (08:21)
[2024-07-16] MEDS: LOW STRENGTH ASPIRIN 81 MG PO (08:21)
[2024-07-16] MEDS: FLEXERIL 5 MG PO (08:21)
[2024-07-16] MEDS: SENOKOT-S 1 TABLET PO ×2 (08:21→20:19)
[2024-07-16] MEDS: PROTONIX 40 MG PO (08:21)
[2024-07-16] MEDS: MAGNESIUM OXIDE 500 MG PO ×2 (08:21→20:18)
[2024-07-16] MEDS: PACERONE 200 MG PO ×3 (08:22→22:22)
[2024-07-16] MEDS: NEURONTIN 100 MG PO ×3 (08:22→22:22)
[2024-07-16] MEDS: LIDOCAINE 4% PATCH 1 PATCH TOPICAL (08:23)
[2024-07-16] MEDS: BACTROBAN 2% OINTMENT 1 APPLIC NASAL ×2 (08:23→20:18)
--- NOTE | 2024-07-16 08:27 | W.PN.CD ---
Today's Communication / Plan
-
Incentive spirometry.
Ambulation.
Routine post operative managment.
Wean inotropes/pressors to MAP of > 65 mmHg, CI > 1.8 L/min/m2.
Impression / Plan
-
Impression/Plan: 64 yo male with PMH of HLD, NIDDM and CAD admitted for elective CABG.
#CAD
-Chronic.
-S/P CABG x4 (PARRISH to LAD, SVG to RPDA, SVG to upper branch of OM, SVG to Diag) with Dr. Franklin, 07/15/2024.
-S/P #[address] Franklin, 07/15/2024.
-Routine post operative management.
-Wean inotropes/pressors for MAP > 65 mmHg, CI > 1.8 L/min/m2.
-Restart high dose, high potency statin.
-Continue amiodarone, aspirin, clopidogrel.
-Encourage incentive spirometry.
-Ambulate when appropriate.
-Pain/chest tube management per CT surgery.
#Hyperlipidemia
-Chronic.
-Total cholesterol = 71, LDL = 24, HDL = 36, Triglycerides = 59.
-Continue home rosuvastatin. LDL + Triglycerides are at goal.
#DM
-Chronic, stable.
-Management per primary team.
-The patient would benefit from GLP-1 analog (DM + CAD) as an outpatient.
Subjective/Interval History:
CABG + LAAE yesterday.
Weight is up 1.1 kg.
RAP 4-7 mmHg.
BP stable.
SaO2 = 100% on 2LNC.
Hbg 12.9 --> 9.9 --> 9.8 --> 8.5.
DATA:
Cardiac Catheterization, 06/18/2024:
CORONARY ANGIOGRAPHY
Dominance: right
LM: Large with mild disease
LAD: Large vessel giving rise to a small D1 and trifurcating D2. Just before the takeoff of D2, there is a 60% eccentric stenosis (best seen in SYED cranial). This was further interrogated by iFR.
LCx: Large vessel giving rise to a small OM1, moderate caliber OM 2, and large OM 3. There is a 95% ostial stenosis, and a 90% stenosis before the takeoff of OM 2.
RCA: Large vessel giving rise to a moderate caliber RPDA, moderate caliber RPL 1, and small RPL 2. There is a smooth 80% stenosis in the mid RCA and otherwise mild disease.
Transthoracic Echo, 06/09/2024:
CONCLUSIONS
Normal biventricular size and systolic function without regional wall motion
abnormality.
No significant valvular disease.
No prior study available for comparison.
Physical Exam
Vital Signs/Labs
Vital Signs
Temp Pulse Resp BP Pulse Ox
37.2 C 78 16 108/54 100
07/16/24 07:00 07/16/24 07:00 07/16/24 07:00 07/16/24 07:00 07/16/24 07:00
07/14/24 07/15/24 07/16/24
11:59 11:59 11:59
Actual Weight 77.5 kg 78.6 kg
07/16/24 02:59
07/16/24 02:59
PT 17.0 Sec (11.4-14.6) H 07/15/24 14:22
INR 1.36 07/15/24 14:22
APTT 33.8 Sec (23.4-35.0) 07/15/24 14:22
Magnesium 2.0 mg/dl (1.6-2.3) 07/16/24 02:59
Triglycerides 59 mg/dl (10-149) 07/16/24 02:59
LDL Cholesterol, Calc 24 mg/dl 07/16/24 02:59
VLDL Cholesterol, Calc 11 mg/dl (0-30) 07/16/24 02:59
HDL Cholesterol 36 mg/dl 07/16/24 02:59
Physical Exam
Constitutional: No acute distress and Comfortable
EENT: Anicteric and Moist mucous membranes
Cardiovascular: Rhythm & rate is regular, Pedal edema is absent, JVD pressure is normal, S1S2 is normal and Murmur/rub/gallop absent
Respiratory: Respiratory effort normal and Other (Decreased throughout.)
GI: Soft, Distention absent, Flat, Non tender and Normal bowel sounds
Neuro/Psych: AO x 3
Data Reviewed
-
Date of Service: July 16, 2024
Medical Decision Making: Reviewed Test Results, Independent Historian Assessment and Test Interpretation
EKG: Tracing Personally Visualized and interpreted and Report Reviewed by me
Echo: Report Reviewed by me
X-Ray/CT/US/MRI/NUC/PET: Image Personally Visualized and interpreted and Report Reviewed by me
Medical Tests (PFT, Pathology etc): Report Reviewed by me
Labs: Labs Reviewed by me
Old Records: Reviewed
--- NOTE | 2024-07-16 08:30 | W.PN.INTV ---
Today's Communication / Plan
Recommendations
Up OOB as tolerated
Pain control
Maintain SpO2 >90-94%
Encourage incentive spirometer use
Wean off insulin drip with goal BG >100 and <180, transitioning to ISS
Patient being weaned off the insulin drip today and then will be transitioned to SQ ISS. Patient to be downgraded to CVICU�telemetry status and once transferred we will sign off at that time. Please call back with any questions or concerns
Assessment
-
Assessment: 64-year-old male former tobacco smoker (quit 15 years ago) with a past medical history of DM type II, hypercholesterolemia, ED, and multivessel CAD who presents with elective CABG. Patient known to the cardiothoracic surgery service
with last visit on 06/29/[address] Franklin. Patient has known multivessel CAD which was showing on left heart catheterization on 06/18/2024, showing 60% eccentric stenosis in the LAD, 95% ostial stenosis of the LCx, 90% stenosis just before the OM
2 takeoff, and 80% stenosis in the mid RCA. Of note, he had normal LV filling pressures with LVEDP: 10 mmHg. Surgical revascularization was discussed including its risks and benefits and patient agreed for intervention. On 07/15/2024, he underwent
a CABG x 4 with left atrial appendage exclusion with a 40 mm AtriClip. He tolerated the procedure well with no complications, and was transferred to the CVICU postoperatively for further care. Console Assembler services consulted for additional
management/recommendations.
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
Impression:
#Multivessel CAD s/p CABG x 4 (POD #1)
#Family history of atrial fibrillation s/p left atrial appendage exclusion with 40 mm AtriClip (POD #1)
#Acute anemia due to above
#DM type II c/b mild hyperglycemia (HbA1c: 6.4 on 07/13/2024)
#Hypocalcemia - resolved
#Hypercholesterolemia
#Erectile dysfunction
Plan:
Patient successfully extubated to nasal cannula on 07/15/2024, he is currently on room air saturating 96%
Maintain SpO2 >90-94%
Encourage incentive spirometer use q1hr while awake
prn nebulized bronchodilators � not currently bronchospastic
Maintain MAP>65
Replete electrolytes with K>4, Mg>2
Monitor chest tube output (bilateral pleural chest tubes + mediastinal chest tubes x 2)
Monitor hemoglobin
Monitor platelet count and coags
Transfuse blood products as needed to maintain Hb>7g/dL, plt>50k (given post-operative status)
CT surgery managing chest tubes
Monitor blood sugar to maintain euglycemia with goal BG 140-180
Insulin drip per protocol - being weaned off today
Aspiration precautions
DVT prophylaxis
Early nutrition
Early mobilization
Patient being weaned off the insulin drip today and then will be transitioned to [facility]. Patient to be downgraded to CVICU�telemetry status and once transferred we will sign off at that time. Thank you for allowing us to be involved in the care of
this patient. Please call back with any questions or concerns
Total time spent today was 56 minutes for this encounter. Time includes reviewing laboratory test/imaging results, reviewing pertinent medical records, obtaining and reviewing medical history, performing an appropriate exam, ordering medications,
tests and procedures. Time also includes documentation of this encounter, coordinating patient care and communicating with other healthcare professionals. Total time does not include separately billed tests performed on this date of service.
Subjective Dataa
Subjective Data
Date of Service:
Date of Service: July 16, 2024
Chief Complaint: Console Assembler Follow Up
Subjective:
Patient was seen and evaluated today at bedside. Heart rate 86 and BP 105/47 via A-line. Currently on room air breathing comfortably. Remains on insulin drip at 3.5 units/h. Chest tubes x [address] and he endorses some postoperative related
chest discomfort. Denies SOB, nausea, fevers or chills.
Review of Systems
General: Other (Negative unless mentioned above)
Objective Data
Data Reviewed
Vital Signs / I&O / Oxygen:
Vital Signs
Temp Pulse Resp BP Pulse Ox
99.4 F 74 13 108/54 100
07/16/24 08:00 07/16/24 08:00 07/16/24 08:00 07/16/24 07:00 07/16/24 08:00
Intake and Output
07/15/24 07/16/24 07/17/24
06:59 06:59 06:59
Intake Total 1680.8 / 1718.4 435.2 / 435.2
Output Total 1884 / 1954 120 / 120
Balance -204.2 / -236.6 315.2 / 315.2
SaO2 [P-SIMV] 100
SaO2 100
Nasal Cannula flow liters per 2
minute
Physical Exam
General: Respiratory Distress (negative), Comfortable, Chills (negative) and Sweats (negative)
HEENT: Normocephalic and Anicteric
Cardiovascular: S1-S2 and Peripheral Edema (negative)
Respiratory: Wheeze (negative), Crackles (negative), Rhonchi (negative), Non-Labored Respirations, Stridor (negative) and Chest Tube (Bilateral pleural chest tubes + mediastinal chest tubes x 2)
GI: Soft, Non Distended, Non Tender and Normal Bowel Sounds
Neurology: AO x 3 and Tremors (negative)
Skin: Warm, Dry, Cyanosis (negative) and Jaundice (negative)
Labs/Micro/Reports
Lab Data
07/16/24 02:59
07/16/24 02:59
Laboratory Results
07/15/24 07/15/24
14:22 16:51
PT 17.0 H
INR 1.36
APTT 33.8
pH 7.37 7.33 L
pCO2 43 44
pO2 169 H 186 H
HCO3 24.9 23.2
O2 Delivery Level
Microbiology
07/13/24 08:43 Nose MRSA Screen - Final
No Methicillin Resistant Staphylococcus aureus isolated.
[2024-07-16] MEDS: LR 500 IV (09:06)
--- NOTE | 2024-07-16 09:56 | PTCARENOTE ---
Rt IJ slick removed per order, Daley cath also removed at this time, pt instructed on time and amount protocol. Tolerating clear liquids. Levo weaned as able.
[2024-07-16 10:10] LABS: Glucose - Point of Care 99 mg/dl (70-99)
--- NOTE | 2024-07-16 11:29 | CM ---
Chart reviewed. Patient is independent of ADLS, rents a room out to a friend, split level house, 5 [address] 0 DME. Patient's girlfriend to stay with the patient when he goes home. Plan is for the patient to return home with girlfiriend and CT
Transitional RN. CM to follow
--- NOTE | 2024-07-16 11:40 | PTCARENOTE ---
Assist x 2 oob to chair. Pt dizzy initially upon standing but recovered w/o issue, VSS, no drop in bp with standing.
[2024-07-16 12:34] LABS: Glucose - Point of Care 156 mg/dl (70-99)
[2024-07-16] MEDS: ROXICODONE 5 MG PO ×2 (12:37→20:30)
[2024-07-16] MEDS: NSS IV (13:05)
--- NOTE | 2024-07-16 13:29 | CM ---
Addendum entered by Sydnee Aguirre RN 07/16/24 14:13:
Reviewed pricing with the patient and he prefers to stay with his Niya.
Original Note:
Pricing on Farxiga is $153 for a 30 day supply through the patient's prescription plan.
Jardiance is $161 for a 30 day supply through the patient's prescription plan.
[2024-07-16 14:12] LABS: Glucose - Point of Care 146 mg/dl (70-99)
[2024-07-16 14:19] LABS: B.E. - POC -2.7 mmol/L; Glucose - POC 113 mg/dl (70-99); HCO3 - POC 22 mmol/L (21-28); Hematocrit - POC 30 % PCV (42-52); Hemodilution- POC Yes; Ionized Calcium - POC 1.26 mmol/L (1.15-1.33); PCO2 - POC 39 mmHg (35-48); PO2 - POC 483 mmHg (83-108); POC Comment POST; Potassium - POC 3.4 mmol/L (3.5-5.1); Sodium - POC 145 mmol/L (136-145); Specimen Type - POC Arterial; pH - POC 7.37 (7.35-7.45)
--- NOTE | 2024-07-16 15:30 | PTCARENOTE ---
Pt requesting pain medications. When asked pain level pt stated well 'Im not in pain Im ansty', when questioned more about this feeling Pt became defensive and told nurse to never mind. Resting in bed after
--- NOTE | 2024-07-16 16:44 | PTCARENOTE ---
Insulin drip discontinued per CT CELLOPHANE WORKER order, LT radial A line removed at this time , manual pressure applied hemostasis achieved. Resting in bed. VSS. Assessment otherwise unchanged from prior.
[2024-07-16] MEDS: CRESTOR 20 MG PO (17:14)
[2024-07-16] MEDS: JANUVIA 100 MG PO (17:15)
[2024-07-16] MEDS: GLUCOPHAGE 500 MG PO (17:15)
--- NOTE | 2024-07-16 17:38 | PTCARENOTE ---
Pt has not voided post cardona removal this am. Denies urge. Bladder scan preformed for 277. CT SEED SERVICE ADVISOR notified. Will allow more time
[2024-07-16] MEDS: NOVOLOG FLEXPEN-MODERATE RESISTANCE SC (19:04)
--- NOTE | 2024-07-16 20:30 | PTCARENOTE ---
Patient received OOB in chair. Patient A+A+Ox3. No neurological deficits noted. Patient assisted to bed. No c/o headache, dizziness or lightheadedness. Pain management. Room air. SpO2 97%. Four chest tubes - Mediastinal x2 and Right and Left
Pleural - Intact and patent - No air leak. Chest tube dressing intact. Sinus Rhythm. Heart rate 80's. No c/o chest pain, pressure or discomfort. Normoactive bowel sounds. No BM. No c/o nausea. No vomiting. No urge to void at this time.
Right I.J. Cordis. Sternal dressing intact. Right groin puncture site intact. Right knee incision intact - Surgical adhesive - Open to air. Patient with no c/o back or flank pain. Assessment as documented.
[2024-07-16 22:52] LABS: Glucose - Point of Care 177 mg/dl (70-99)
[2024-07-17] VITALS (12 sets, daily range): BP systolic 98–128; BP diastolic 54–65; PULSE 77; O2SAT 96–98; BMI 23.7
--- NOTE | 2024-07-17 01:00 | PTCARENOTE ---
Patient with no urge to void. Patient assisted to standing position to attempt to void. Unable to void. Bladder scanned for 651 ml. Patient with no c/o bladder pain, spasm or discomfort. Straight cath for 700 ml of yellow urine. Patient back
to sleep. Assessment/Interventions as documented.
[2024-07-17] MEDS: DILAUDID 0.25 MG IV (01:06)
--- NOTE | 2024-07-17 05:30 | PTCARENOTE ---
Patient A+A+Ox3. No neurological deficits noted. Patient given CHG bath and linens changed. Chest tube dressing changed. AM lab work collected and sent. Portable CXR completed. OOB to chair. Assessment/Interventions as documented.
[2024-07-17] MEDS: TYLENOL 1000 MG PO ×2 (05:35→21:13)
[2024-07-17] MEDS: NSS 500 IV (05:36)
[2024-07-17] MEDS: ROXICODONE 5 MG PO (05:36)
[2024-07-17 05:54] LABS: Blood Urea Nitrogen 23 mg/dl (9-20); Calcium 8.1 mg/dl (8.4-10.2); Carbon Dioxide 29 mmol/L (22-30); Chloride 96 mmol/L (98-107); Estimated Creatinine Clearance 102 ml/min; Glucose 204 mg/dl (70-99); Magnesium 2.4 mg/dl (1.6-2.3); Potassium 4.8 mmol/L (3.5-5.1); Sodium 132 mmol/L (135-145); eGFR > 60.00
--- NOTE | 2024-07-17 06:13 | W.PN.CT ---
Today's Communication / Plan
-
pod #1
-was straight cathed for 700 cc at 1 am- started Flomax. Monitor BP and UO
-no drips
-CT outputs: 2 meds 50/80, 2 pleur 90/150
-current meds (ASA, Plavix, Lopressor, Amio, Crestor, Farxiga to start today, Flomax, Protonix)
-encourage IS, OOB
Assessment / Plan
-
- Mv-CAD - s/p CABG x 4 (SOLITARIO to LAD, GSV to RPDA, GSV to OM [upper branch], GSV to D); ELAA w/ 40mm AtriClip on 07/15/24, pod #3
- Post-BJ: LVEF 50-55% w/o RWMA, normal RV, no sig VHD
- HTN
- HLD
- DM 2
- Former smoker, quit 15 yrs ago
- Skin CA - s/p Mohs
- ED
- FHx of AF
- Multiple small pulmonary nodules on chest CT
- 2.2 cm R adrenal mass
- Acute postop blood loss anemia - stable
- Acute intraop coagulopathy - s/p 1 unit platelets
- Acute postop vasoplegia
- Acute postop atelectasis
- Acute postop hypovolemia with subsequent hypervolemia
- Acute postop urinary retention, required straight cath
Discussed patient care with: Nursing and Care Team
Subjective
Procedure
- s/p CABG x 4 (SOLITARIO to LAD, GSV to RPDA, GSV to OM [upper branch], GSV to D); ELAA w/ 40mm AtriClip on 07/15/24
-
Date of Service: July 17, 2024
Objective Data
-
Lab Results
07/17/24 04:48
PT 17.0 Sec (11.4-14.6) H 07/15/24 14:22
INR 1.36 07/15/24 14:22
APTT 33.8 Sec (23.4-35.0) 07/15/24 14:22
Vital Signs
Vital Signs
Temp Pulse Resp BP Pulse Ox
99.4 F 85 16 110/60 97
07/17/24 00:00 07/17/24 05:45 07/17/24 00:00 07/17/24 04:00 07/17/24 00:00
CT Intake/Output/Weight
07/16/24 07/16/24 07/17/24
06:59 18:59 06:59
Intake Total 1359.5 / 1718.4 884.3 / 1474.3 590 / 1474.3
Output Total 1075 / 1955 320 / 1160 840 / 1160
Balance 284.5 / -236.6 564.3 / 314.3 -250 / 314.3
SaO2: 97
Physical Exam
-
General: Awake and AOx3
Cardiovascular: Regular rate & rhythm (+ JVD), No Murmurs and Rub
Respiratory: Decreased Breath Sounds
Sternum: Stable
Incision: Clean, Dry and Intact
Extremities: No Edema
Data Reviewed
-
Lab Results: Results Reviewed
Medications: Active Meds Reviewed
Chest X-Ray: Report Reviewed and Image Reviewed
ECG: Report Reviewed and Image Reviewed
[2024-07-17 07:12] LABS: Hematocrit 21.8 % (39.0-52.0); Hemoglobin 7.5 g/dL (13.0-18.0); Mean Corp Hgb Conc. 34.4 g/dL (33.0-37.0); Mean Corpuscular Hgb 32.3 pg (27.0-31.0); Mean Platelet Volume 10.6 fL (7.4-10.4); Platelet Count 124 10^3/uL (130-400); Red Blood Cell Count 2.32 10^6/uL (4.70-6.10); Red Cell Dist. Width 12.8 % (11.5-14.5); White Blood Cell Count 14.1 10^3/uL (4.8-10.8)
[2024-07-17 07:36] LABS: Glucose - Point of Care 230 mg/dl (70-99)
[2024-07-17] MEDS: NOVOLOG FLEXPEN-MODERATE RESISTANCE 3 UNITS SC ×2 (07:58→12:56)
[2024-07-17] MEDS: BACTROBAN 2% OINTMENT 1 APPLIC NASAL ×2 (07:59→21:14)
[2024-07-17] MEDS: FARXIGA 10 MG PO (08:06)
[2024-07-17] MEDS: SENOKOT-S 1 TABLET PO ×2 (08:06→21:12)
[2024-07-17] MEDS: GLUCOPHAGE 500 MG PO ×3 (08:06→16:02)
[2024-07-17] MEDS: LOW STRENGTH ASPIRIN 81 MG PO (08:06)
[2024-07-17] MEDS: PLAVIX 75 MG PO (08:06)
[2024-07-17] MEDS: LIDOCAINE 4% PATCH TOPICAL (08:06)
[2024-07-17] MEDS: NEURONTIN 100 MG PO ×3 (08:06→21:12)
[2024-07-17] MEDS: FLOMAX 0.4 MG PO (08:06)
[2024-07-17] MEDS: PROTONIX 40 MG PO (08:07)
[2024-07-17] MEDS: PACERONE 200 MG PO ×3 (08:07→21:12)
[2024-07-17] MEDS: LOPRESSOR 12.5 MG PO ×2 (08:07→21:11)
[2024-07-17] MEDS: MAGNESIUM OXIDE PO ×2 (08:24→21:13)
--- NOTE | 2024-07-17 08:30 | PTCARENOTE ---
Assumed care of the patient at 0700. Patient OOB to chair, AOx3, no acute c/o pain. SR on the monitor, pulses palpable, no edema, heart tones audible. Lungs diminished throughout, on RA, IS encouraged. CTx4 in place to -20 cm wall suction,
sanguinous drainage in the chamber. +BS, appetite good, tolerating PO without n/v, no BM yet, passing flatus per patient. Patient unable to void spontaneously, straight catheterized for 500 mLs. Education provided on bladder scan protocol and
responding to the urge to void. MS Hillman with scant old drainage, CT site dressings intact, RSVG CDI SPOOLER RUBBER STRAND, R groin CDI MARTINE. See nursing worklist for intervention details.
--- NOTE | 2024-07-17 10:14 | W.PN.CD ---
Today's Communication / Plan
-
continue ASA, Plavix, metoprolol, crestor
trend tele
Impression / Plan
-
Impression/Plan: 64 yo male with PMH of HLD, NIDDM and CAD admitted for elective CABG.
#CAD
-S/P CABG x4 (PARRISH to LAD, SVG to RPDA, SVG to upper branch of OM, SVG to Diag) with Dr. Franklin, 07/15/2024.
-S/P #[address] Franklin, 07/15/2024.
-rhythm: sinus
-BJ: EF 50-55%
-ASA, Plavix, metoprolol, crestor
#Hyperlipidemia
-Chronic.
-Total cholesterol = 71, LDL = 24, HDL = 36, Triglycerides = 59.
-Continue home rosuvastatin. LDL + Triglycerides are at goal.
#DM
-Chronic, stable.
-Management per primary team.
-The patient would benefit from GLP-1 analog (DM + CAD) as an outpatient.
Subjective/Interval History:
Chest tubes out today.
DATA:
Cardiac Catheterization, 06/18/2024:
CORONARY ANGIOGRAPHY
Dominance: right
LM: Large with mild disease
LAD: Large vessel giving rise to a small D1 and trifurcating D2. Just before the takeoff of D2, there is a 60% eccentric stenosis (best seen in SYED cranial). This was further interrogated by iFR.
LCx: Large vessel giving rise to a small OM1, moderate caliber OM 2, and large OM 3. There is a 95% ostial stenosis, and a 90% stenosis before the takeoff of OM 2.
RCA: Large vessel giving rise to a moderate caliber RPDA, moderate caliber RPL 1, and small RPL 2. There is a smooth 80% stenosis in the mid RCA and otherwise mild disease.
Transthoracic Echo, 06/09/2024:
CONCLUSIONS
Normal biventricular size and systolic function without regional wall motion
abnormality.
No significant valvular disease.
No prior study available for comparison.
Physical Exam
Vital Signs/Labs
Vital Signs
Temp Pulse Resp BP Pulse Ox
97.8 F 77 18 98/62 94
07/17/24 07:36 07/17/24 09:36 07/17/24 08:00 07/17/24 09:36 07/17/24 07:36
07/16/24 07/17/24 07/18/24
06:59 06:59 06:59
Actual Weight 78.6 kg 81.3 kg
07/17/24 06:34
07/17/24 04:48
PT 17.0 Sec (11.4-14.6) H 07/15/24 14:22
INR 1.36 07/15/24 14:22
APTT 33.8 Sec (23.4-35.0) 07/15/24 14:22
Magnesium 2.4 mg/dl (1.6-2.3) H 07/17/24 04:48
Triglycerides 59 mg/dl (10-149) 07/16/24 02:59
LDL Cholesterol, Calc 24 mg/dl 07/16/24 02:59
VLDL Cholesterol, Calc 11 mg/dl (0-30) 07/16/24 02:59
HDL Cholesterol 36 mg/dl 07/16/24 02:59
Physical Exam
Constitutional: No acute distress
EENT: Moist mucous membranes
Cardiovascular: Rhythm & rate is regular and Pedal edema is absent
Respiratory: Respiratory effort normal
Neuro/Psych: Alert and Oriented
Data Reviewed
-
Date of Service: July 17, 2024
EKG: Other (Tele: SR 80-90s)
Labs: Labs Reviewed by me
--- NOTE | 2024-07-17 12:30 | SUR.OPER ---
CTx4 removed without issues, patient tolerated procedure. Sutures tied, Vaseline occlusive dressing applied with gauze and abdominal pad. Patient reported feeling better after CT removal. Patient able to void spontaneously 540 mLs in the urinal, PVR
74 around 1230. CVPA made aware. Reinforced earlier education. Patient in and out of bed as tolerated, walked halls with cardiac rehab, no dizziness/lightheadedness reported. Assessment of needs ongoing, call escoto within reach.
[2024-07-17 12:55] LABS: Glucose - Point of Care 200 mg/dl (70-99)
[2024-07-17] MEDS: TYLENOL PO (13:36)
[2024-07-17 15:59] LABS: Glucose - Point of Care 158 mg/dl (70-99)
[2024-07-17] MEDS: NOVOLOG FLEXPEN-MODERATE RESISTANCE 1 UNITS SC (16:02)
--- NOTE | 2024-07-17 16:09 | PTCARENOTE ---
pt report received from previous RN, oriented OOB in chair. SR on the monitor, HR 80s. SBP 100-110s. pt on RA, 91% POX. denies SOB. IS encouraged. pt abdomen s/n, denies n/v. diet tolerated. OOB to chair independently. surgical sites intact. RIJ
cordis maintained. PIV. pt denies pain.
[2024-07-17] MEDS: JANUVIA 100 MG PO (17:04)
[2024-07-17] MEDS: CRESTOR 20 MG PO (17:04)
--- NOTE | 2024-07-17 19:00 | PTCARENOTE ---
Assumed patient care from RN @1900. Patient lying comfortably in bed w/ call escoto in reach. Patient VSS NSR HR 87 BP 101/65. AOx4, heart sounds audible, Lungs clear bilaterally, bowel sounds hypoactive, ambulating to void, radial and pedal pulses
present bilaterally, Strength equal bilaterally. RIJ cordis infusing 10mL KVO, RIJ cordis and right PIV patent and intact. Sternal wound dry and intact w/ scant dressing, CT dressing dry and intact, R leg incisions dry and well approximated.
[2024-07-17 21:36] LABS: Glucose - Point of Care 156 mg/dl (70-99)
[2024-07-18] VITALS (11 sets, daily range): BP systolic 86–123; BP diastolic 57–70; BMI 23.4
--- NOTE | 2024-07-18 00:32 | PTCARENOTE ---
Assessment unchanged. VSS HR 78 POX 91 RA BP 91/57 CT PEST CONTROL SUPERVISOR notified. Patient resting comfortably in bed w/ call escoto in reach.
--- NOTE | 2024-07-18 04:52 | PTCARENOTE ---
Assessment unchanged. Patient lying in bed w/ call escoto in reach. VSS NSR BP 107/58 HR 86 POX 90% RA.
--- NOTE | 2024-07-18 05:28 | W.PN.CT ---
Today's Communication / Plan
-
-no overnight events
-CTs out
-voiding after flomax
-current meds (ASA, Plavix, Lopressor 12.5 mg, Amio, Crestor, Farxiga, Flomax, Protonix, mag ox)
-DM mgt metformin, Januvia, insulin SS
-encourage IS, OOB
Assessment / Plan
-
- Mv-CAD - s/p CABG x 4 (SOLITARIO to LAD, GSV to RPDA, GSV to OM [upper branch], GSV to D); ELAA w/ 40mm AtriClip on 07/15/24, pod #3
- Post-BJ: LVEF 50-55% w/o RWMA, normal RV, no sig VHD
- HTN
- HLD
- DM 2
- Former smoker, quit 15 yrs ago
- Skin CA - s/p Mohs
- ED
- FHx of AF
- Multiple small pulmonary nodules on chest CT
- 2.2 cm R adrenal mass
- Acute postop blood loss anemia - stable
- Acute intraop coagulopathy - s/p 1 unit platelets
- Acute postop vasoplegia
- Acute postop atelectasis
- Acute postop hypovolemia with subsequent hypervolemia
- Acute postop urinary retention, required straight cath
Subjective
Procedure
- s/p CABG x 4 (SOLITARIO to LAD, GSV to RPDA, GSV to OM [upper branch], GSV to D); ELAA w/ 40mm AtriClip on 07/15/24
-
Date of Service: July 18, 2024
Objective Data
-
PT 17.0 Sec (11.4-14.6) H 07/15/24 14:22
INR 1.36 07/15/24 14:22
APTT 33.8 Sec (23.4-35.0) 07/15/24 14:22
Vital Signs
Vital Signs
Temp Pulse Resp BP Pulse Ox
98.3 F 86 14 107/58 90
07/18/24 04:50 07/18/24 04:41 07/18/24 04:50 07/18/24 04:41 07/18/24 04:50
CT Intake/Output/Weight
07/17/24 07/17/24 07/18/24
06:59 18:59 06:59
Intake Total 590 / 1474.3 725 / 975 250 / 975
Output Total 840 / 1160 1570 / 2720 1150 / 2720
Balance -250 / 314.3 -845 / -1745 -900 / -1745
SaO2: 90
Physical Exam
-
General: Awake, Oriented and AOx3
Cardiovascular: Regular rate & rhythm, No Murmurs and No Rub
Respiratory: Clear and Equal
Sternum: Stable
Incision: Clean, Dry and Intact
Extremities: No Edema and No Erythema
Data Reviewed
-
Lab Results: Results Reviewed
Medications: Active Meds Reviewed
Chest X-Ray: Report Reviewed
ECG: Report Reviewed
[2024-07-18 05:38] LABS: Blood Urea Nitrogen 23 mg/dl (9-20); Calcium 7.9 mg/dl (8.4-10.2); Carbon Dioxide 25 mmol/L (22-30); Chloride 99 mmol/L (98-107); Estimated Creatinine Clearance 104 ml/min; Glucose 128 mg/dl (70-99); Magnesium 2.4 mg/dl (1.6-2.3); Potassium 4.2 mmol/L (3.5-5.1); Sodium 132 mmol/L (135-145); eGFR > 60.00
[2024-07-18 05:41] LABS: Hematocrit 18.9 % (39.0-52.0); Hemoglobin 6.4 g/dL (13.0-18.0); Mean Corp Hgb Conc. 33.9 g/dL (33.0-37.0); Mean Corpuscular Hgb 31.7 pg (27.0-31.0); Mean Corpuscular Volume 93.6 fL (80.0-94.0); Red Blood Cell Count 2.02 10^6/uL (4.70-6.10); Red Cell Dist. Width 12.7 % (11.5-14.5); White Blood Cell Count 10.7 10^3/uL (4.8-10.8)
[2024-07-18] MEDS: TYLENOL 1000 MG PO ×3 (06:06→21:47)
[2024-07-18 06:21] LABS: Hematocrit 18.4 % (39.0-52.0); Hemoglobin 6.2 g/dL (13.0-18.0)
--- NOTE | 2024-07-18 06:24 | PTCARENOTE ---
CT CHIEF BUILDING INSPECTOR notified of critical hgb and hct. Labs redrawn and new critical results relayed to CT CHIEF BUILDING INSPECTOR. HR and BP stable. CT CHIEF BUILDING INSPECTOR says no blood for now, will pass along to dayshift.
[2024-07-18 06:42] LABS: Platelet Count 96 10^3/uL (130-400)
[2024-07-18 06:43] LABS: Mean Platelet Volume 10.5 fL (7.4-10.4)
[2024-07-18 07:51] LABS: Glucose - Point of Care 244 mg/dl (70-99)
[2024-07-18] MEDS: FLOMAX 0.4 MG PO (07:52)
[2024-07-18] MEDS: PROTONIX 40 MG PO (07:52)
[2024-07-18] MEDS: NOVOLOG FLEXPEN-MODERATE RESISTANCE 3 UNITS SC (07:52)
[2024-07-18] MEDS: MAGNESIUM OXIDE 500 MG PO ×2 (07:52→19:51)
[2024-07-18] MEDS: NEURONTIN 100 MG PO ×3 (07:52→21:47)
[2024-07-18] MEDS: PACERONE 200 MG PO ×3 (07:52→21:47)
[2024-07-18] MEDS: LOW STRENGTH ASPIRIN 81 MG PO (07:52)
[2024-07-18] MEDS: LOPRESSOR 12.5 MG PO ×2 (07:52→19:51)
[2024-07-18] MEDS: PLAVIX 75 MG PO (07:52)
[2024-07-18] MEDS: FARXIGA 10 MG PO (07:52)
[2024-07-18] MEDS: BACTROBAN 2% OINTMENT 1 APPLIC NASAL ×2 (07:53→19:51)
[2024-07-18] MEDS: GLUCOPHAGE 500 MG PO ×3 (07:54→16:30)
[2024-07-18 08:26] LABS: Hematocrit 18.8 % (39.0-52.0); Hemoglobin 6.5 g/dL (13.0-18.0)
--- NOTE | 2024-07-18 08:30 | PTCARENOTE ---
pt report received from previous RN, oriented, OOB in chair. SR on the monitor, HR 80-90s. SBP 90-120s. pt on RA, 95% POX. denies SOB. IS encouraged. pt abdomen s/n, denies n/v. voids. +BM. diet tolerated. OOB to chair independently. surgical sites
intact. RIJ cordis maintained. PIV. pt denies pain. labs drawn as ordered, PA aware of results. see worklist for VS, I&O, and assessment.
[2024-07-18] MEDS: LIDOCAINE 4% PATCH TOPICAL (08:36)
[2024-07-18 11:35] LABS: Glucose - Point of Care 119 mg/dl (70-99)
[2024-07-18] MEDS: NOVOLOG FLEXPEN-MODERATE RESISTANCE SC (11:58)
[2024-07-18] MEDS: KCL 20 MEQ PO (12:04)
[2024-07-18] MEDS: SENOKOT-S 1 TABLET PO ×2 (12:04→19:51)
[2024-07-18] MEDS: LASIX 40 MG IV (12:05)
[2024-07-18] MEDS: NSS IV (12:06)
--- NOTE | 2024-07-18 12:15 | PTCARENOTE ---
pt VSS, no changes in assessment. pt placed back to bed. PRBC x1 transfused as ordered. no c/o pain or SOB.
--- NOTE | 2024-07-18 13:14 | W.PN.CD ---
Today's Communication / Plan
-
continue ASA, Plavix, metoprolol, crestor
trend tele
trend Hgb
Impression / Plan
-
Impression/Plan: 64 yo male with PMH of HLD, NIDDM and CAD admitted for elective CABG.
#CAD
-S/P CABG x4 (PARRISH to LAD, SVG to RPDA, SVG to upper branch of OM, SVG to Diag) with Dr. Franklin, 07/15/2024.
-S/P #[address] Franklin, 07/15/2024.
-post op anemia: s/p 1U pRBC today
-rhythm: sinus
-BJ: EF 50-55%
-continue ASA, Plavix, metoprolol, crestor
#Hyperlipidemia
-Chronic.
-Total cholesterol = 71, LDL = 24, HDL = 36, Triglycerides = 59.
-Continue home rosuvastatin. LDL + Triglycerides are at goal.
#DM
-Chronic, stable.
-Management per primary team.
-The patient would benefit from GLP-1 analog (DM + CAD) as an outpatient.
Subjective/Interval History:
s/p 1U pRBC
DATA:
Cardiac Catheterization, 06/18/2024:
CORONARY ANGIOGRAPHY
Dominance: right
LM: Large with mild disease
LAD: Large vessel giving rise to a small D1 and trifurcating D2. Just before the takeoff of D2, there is a 60% eccentric stenosis (best seen in SYED cranial). This was further interrogated by iFR.
LCx: Large vessel giving rise to a small OM1, moderate caliber OM 2, and large OM 3. There is a 95% ostial stenosis, and a 90% stenosis before the takeoff of OM 2.
RCA: Large vessel giving rise to a moderate caliber RPDA, moderate caliber RPL 1, and small RPL 2. There is a smooth 80% stenosis in the mid RCA and otherwise mild disease.
Transthoracic Echo, 06/09/2024:
CONCLUSIONS
Normal biventricular size and systolic function without regional wall motion
abnormality.
No significant valvular disease.
No prior study available for comparison.
Physical Exam
Vital Signs/Labs
Vital Signs
Temp Pulse Resp BP Pulse Ox
98.1 F 74 18 103/69 96
07/18/24 11:05 07/18/24 11:01 07/18/24 11:05 07/18/24 11:01 07/18/24 11:05
07/17/24 07/18/24 07/19/24
06:59 06:59 06:59
Actual Weight 81.3 kg 80.3 kg
07/18/24 08:02
07/18/24 04:48
PT 17.0 Sec (11.4-14.6) H 07/15/24 14:22
INR 1.36 07/15/24 14:22
APTT 33.8 Sec (23.4-35.0) 07/15/24 14:22
Magnesium 2.4 mg/dl (1.6-2.3) H 07/18/24 04:48
Triglycerides 59 mg/dl (10-149) 07/16/24 02:59
LDL Cholesterol, Calc 24 mg/dl 07/16/24 02:59
VLDL Cholesterol, Calc 11 mg/dl (0-30) 07/16/24 02:59
HDL Cholesterol 36 mg/dl 07/16/24 02:59
Physical Exam
Constitutional: No acute distress
EENT: Moist mucous membranes
Cardiovascular: Rhythm & rate is regular, JVD pressure is normal, Systolic murmur absent and Pedal edema present
Respiratory: Respiratory effort normal and Lungs clear to auscul.
Neuro/Psych: AO x 3
Data Reviewed
-
Date of Service: July 18, 2024
EKG: Other (Tele: SR 70s-80s)
Labs: Labs Reviewed by me
[2024-07-18] MEDS: ANESTHETIC LOZENGE 1 LOZENGE PO (14:44)
--- NOTE | 2024-07-18 15:39 | PTCARENOTE ---
pt VSS, no changes in assessment. pt ambulated in hallway w/ stand by assist. voids. +BM. no c/o pain.
[2024-07-18 16:27] LABS: Glucose - Point of Care 173 mg/dl (70-99)
[2024-07-18] MEDS: NOVOLOG FLEXPEN-MODERATE RESISTANCE 1 UNITS SC (16:27)
[2024-07-18] MEDS: JANUVIA 100 MG PO (16:30)
[2024-07-18] MEDS: CRESTOR 20 MG PO (17:11)
[2024-07-18 19:57] LABS: Glucose - Point of Care 155 mg/dl (70-99)
--- NOTE | 2024-07-18 20:10 | PTCARENOTE ---
pt received from previous RN. Pt AAOx4, VSS, NSR on the monitor, HR 80-90s. +pulses. RA, 94% POX. lung sounds diminished. +bs, voids appropriately. ambulates in room. all surgical sites intact. RIJ cordis and PIV intact. plan of care discussed and
questions encouraged.
--- NOTE | 2024-07-18 23:01 | PTCARENOTE ---
VSS, pt ambulating in room to void, NSR per tele monitor, assessment remains unchanged
[2024-07-19] VITALS (7 sets, daily range): BP systolic 101–123; BP diastolic 63–94; PULSE 76; O2SAT 98–99; BMI 22.8
--- NOTE | 2024-07-19 04:05 | PTCARENOTE ---
routine labs drawn and sent, VSS, NSR per tele monitor, assessment remains unchanged
[2024-07-19 04:37] LABS: Hematocrit 21.9 % (39.0-52.0); Hemoglobin 7.5 g/dL (13.0-18.0); Mean Corp Hgb Conc. 34.2 g/dL (33.0-37.0); Mean Corpuscular Hgb 31.5 pg (27.0-31.0); Mean Platelet Volume 10.5 fL (7.4-10.4); Platelet Count 131 10^3/uL (130-400); Red Blood Cell Count 2.38 10^6/uL (4.70-6.10); Red Cell Dist. Width 13.2 % (11.5-14.5); White Blood Cell Count 10.1 10^3/uL (4.8-10.8)
[2024-07-19 04:46] LABS: Blood Urea Nitrogen 30 mg/dl (9-20); Calcium 8.1 mg/dl (8.4-10.2); Carbon Dioxide 26 mmol/L (22-30); Chloride 100 mmol/L (98-107); Estimated Creatinine Clearance 92 ml/min; Glucose 127 mg/dl (70-99); Magnesium 2.3 mg/dl (1.6-2.3); Potassium 3.6 mmol/L (3.5-5.1); Sodium 135 mmol/L (135-145); eGFR > 60.00
[2024-07-19] MEDS: TYLENOL 1000 MG PO ×2 (05:44→13:40)
[2024-07-19] MEDS: ANESTHETIC LOZENGE 1 LOZENGE PO (05:44)
--- NOTE | 2024-07-19 06:05 | W.PN.CT ---
Addendum entered and electronically signed by PAZ Saeed 07/21/24 11:29:
CDI query
Vasogenic post procedural shock
Original Note:
Today's Communication / Plan
-
-no overnight events. Maintained NSR in the 70s.
-s/p 1 U PRBC and 40 mg lasix, Hgb 6.4->7.5 this AM
-current meds (ASA, Plavix, Lopressor 12.5 mg, Amio, Crestor, Farxiga, Flomax, Protonix, mag ox)
-DM mgt metformin, Januvia, insulin SS
-encourage IS, OOB
-dispo planning
Assessment / Plan
-
- Mv-CAD - s/p CABG x 4 (SOLITARIO to LAD, GSV to RPDA, GSV to OM [upper branch], GSV to D); ELAA w/ 40mm AtriClip on 07/15/24, pod #4
- Post-BJ: LVEF 50-55% w/o RWMA, normal RV, no sig VHD
- HTN
- HLD
- DM 2
- Former smoker, quit 15 yrs ago
- Skin CA - s/p Mohs
- ED
- FHx of AF
- Multiple small pulmonary nodules on chest CT
- 2.2 cm R adrenal mass
- Acute postop blood loss anemia - stable
- Acute intraop coagulopathy - s/p 1 unit platelets
- Acute postop vasoplegia
- Acute postop atelectasis
- Acute postop hypovolemia with subsequent hypervolemia
- Acute postop urinary retention, required straight cath
Subjective
Procedure
- s/p CABG x 4 (SOLITARIO to LAD, GSV to RPDA, GSV to OM [upper branch], GSV to D); ELAA w/ 40mm AtriClip on 07/15/24
-
Date of Service: July 19, 2024
Objective Data
-
Lab Results
07/19/24 04:03
07/19/24 04:03
PT 17.0 Sec (11.4-14.6) H 07/15/24 14:22
INR 1.36 07/15/24 14:22
APTT 33.8 Sec (23.4-35.0) 07/15/24 14:22
Vital Signs
Vital Signs
Temp Pulse Resp BP Pulse Ox
98.6 F 80 16 101/65 93
07/19/24 04:05 07/19/24 06:00 07/19/24 04:05 07/19/24 03:59 07/19/24 04:05
CT Intake/Output/Weight
07/18/24 07/18/24 07/19/24
06:59 18:59 06:59
Intake Total 250 / 975 310 / 310
Output Total 1150 / 2720 1500 / 1500
Balance -900 / -1745 -1190 / -1190
SaO2: 93
Physical Exam
-
General: Awake, Oriented and AOx3
Cardiovascular: Regular rate & rhythm and Irregular rate & rhythm
Respiratory: Clear and Equal
Sternum: Stable
Incision: Clean, Dry and Intact
Extremities: No Edema and No Erythema
Data Reviewed
-
Lab Results: Results Reviewed
Medications: Active Meds Reviewed
Chest X-Ray: Report Reviewed
ECG: Report Reviewed
[2024-07-19] MEDS: NOVOLOG FLEXPEN-MODERATE RESISTANCE SC ×2 (07:12→12:18)
[2024-07-19 07:13] LABS: Glucose - Point of Care 144 mg/dl (70-99)
[2024-07-19] MEDS: LIDOCAINE 4% PATCH TOPICAL (08:08)
[2024-07-19] MEDS: SENOKOT-S PO (08:08)
[2024-07-19] MEDS: PACERONE 200 MG PO (08:13)
[2024-07-19] MEDS: KCL 40 MEQ PO (08:13)
[2024-07-19] MEDS: FARXIGA 10 MG PO (08:13)
[2024-07-19] MEDS: MAGNESIUM OXIDE 500 MG PO (08:13)
[2024-07-19] MEDS: FLOMAX 0.4 MG PO (08:14)
[2024-07-19] MEDS: PLAVIX 75 MG PO (08:14)
[2024-07-19] MEDS: PROTONIX 40 MG PO (08:14)
[2024-07-19] MEDS: NEURONTIN 100 MG PO (08:14)
[2024-07-19] MEDS: GLUCOPHAGE 500 MG PO ×2 (08:14→12:18)
[2024-07-19] MEDS: TOPROL XL 25 MG PO (08:15)
[2024-07-19] MEDS: LOW STRENGTH ASPIRIN 81 MG PO (08:15)
[2024-07-19] MEDS: BACTROBAN 2% OINTMENT 1 APPLIC NASAL (08:16)
--- NOTE | 2024-07-19 08:20 | W.PN.CD ---
Today's Communication / Plan
-
Start MVI.
Ambulate.
Incentive spirometry.
Trend H/H.
Weight is near baseline. No further diuretics at this point.
Repeat CBC this afternoon.
Impression / Plan
-
Impression/Plan: 64 yo male with PMH of HLD, NIDDM and CAD admitted for elective CABG.
#CAD
-S/P CABG x4 (PARRISH to LAD, SVG to RPDA, SVG to upper branch of OM, SVG to Diag) with Dr. Franklin, 07/15/2024.
-S/P #[address] Franklin, 07/15/2024.
-Tele: NSR.
-BJ: EF 50-55%
-Continue amiodarone, ASA, clopidogrel, metoprolol, rosuvastatin.
-Incentive spirometry.
-Ambulate.
#Anemia
-Acute, postoperative.
-Hbg improved with transfusion and diuresis.
-No obvious source of blood loss outside of surgery. He denies hematuria/hematochezia/melena.
-Continue to trend.
-Fe stores repleated with transfusion.
-Start MVI to make sure B12/Folate/Thiamine are adequate.
-Repeat CBC this afternoon.
#Hyperlipidemia
-Chronic.
-Total cholesterol = 71, LDL = 24, HDL = 36, Triglycerides = 59.
-Continue home rosuvastatin. LDL + Triglycerides are at goal.
#DM
-Chronic, stable.
-Management per primary team.
-Dapagliflozin 10 mg daily started.
-The patient would benefit from GLP-1 analog (DM + CAD) as an outpatient.
#Urinary retention
-Acute, post operative.
-Straight catheterization yielded 700 mL.
-Tamsulosin started.
Subjective/Interval History:
Some mild hypotension yesterday (86/58 mmHg).
Hbg 6.4 yesterday morning. Confirmed on redraw. 1U of PRBCs yesterday. Hbg improved to 7.5 this morning.
Furosemide 40 mg IV x1 given yesterday.
Weight falling appropriately (80.3 kg --> 78.2 kg).
SaO2 95% on room air.
Urinary retention noted. Straight cath for 700 mL. Tamsulosin started.
DATA:
Cardiac Catheterization, 06/18/2024:
CORONARY ANGIOGRAPHY
Dominance: right
LM: Large with mild disease
LAD: Large vessel giving rise to a small D1 and trifurcating D2. Just before the takeoff of D2, there is a 60% eccentric stenosis (best seen in SYED cranial). This was further interrogated by iFR.
LCx: Large vessel giving rise to a small OM1, moderate caliber OM 2, and large OM 3. There is a 95% ostial stenosis, and a 90% stenosis before the takeoff of OM 2.
RCA: Large vessel giving rise to a moderate caliber RPDA, moderate caliber RPL 1, and small RPL 2. There is a smooth 80% stenosis in the mid RCA and otherwise mild disease.
Transthoracic Echo, 06/09/2024:
CONCLUSIONS
Normal biventricular size and systolic function without regional wall motion
abnormality.
No significant valvular disease.
No prior study available for comparison.
Physical Exam
Vital Signs/Labs
Vital Signs
Temp Pulse Resp BP Pulse Ox
36.7 C 81 16 116/63 95
07/19/24 07:55 07/19/24 08:00 07/19/24 07:55 07/19/24 07:54 07/19/24 07:55
07/17/24 07/18/24 07/19/24
11:59 11:59 11:59
Actual Weight 81.3 kg 80.3 kg 78.2 kg
07/19/24 04:03
07/19/24 04:03
PT 17.0 Sec (11.4-14.6) H 07/15/24 14:22
INR 1.36 07/15/24 14:22
APTT 33.8 Sec (23.4-35.0) 07/15/24 14:22
Magnesium 2.3 mg/dl (1.6-2.3) 07/19/24 04:03
Triglycerides 59 mg/dl (10-149) 07/16/24 02:59
LDL Cholesterol, Calc 24 mg/dl 07/16/24 02:59
VLDL Cholesterol, Calc 11 mg/dl (0-30) 07/16/24 02:59
HDL Cholesterol 36 mg/dl 07/16/24 02:59
Physical Exam
Constitutional: No acute distress and Comfortable
EENT: Anicteric and Moist mucous membranes
Cardiovascular: Rhythm & rate is regular, Pedal edema is absent, JVD pressure is normal, S1S2 is normal and Murmur/rub/gallop absent
Respiratory: Respiratory effort normal, Lungs clear to auscul., Wheeze Absent, Crackles Absent and Rhonchi Absent
GI: Soft, Distention absent, Flat, Non tender and Normal bowel sounds
Neuro/Psych: AO x 3
Data Reviewed
-
Date of Service: July 19, 2024
Medical Decision Making: Reviewed Test Results, Independent Historian Assessment and Test Interpretation
EKG: Tracing Personally Visualized and interpreted and Report Reviewed by me
Echo: Report Reviewed by me
X-Ray/CT/US/MRI/NUC/PET: Image Personally Visualized and interpreted and Report Reviewed by me
Medical Tests (PFT, Pathology etc): Report Reviewed by me
Labs: Labs Reviewed by me
Old Records: Reviewed
--- NOTE | 2024-07-19 08:53 | PTCARENOTE ---
Patient received from nightman RN; AAOx3, responds spontaneously to RN and follows commands; Flat affect; VSS; NSR on monitor; Lungs diminished at bases; SpO2 94-96% on RA; IS 2000 ml; +2 DP and radial pulses; Surgical sites intact; RIJ Cordis
with KVO infusing; PIVx1 #18 right wrist; See nursing documentation for further information
[2024-07-19] MEDS: THERAGRAN 1 TABLET PO (09:17)
[2024-07-19 12:18] LABS: Glucose - Point of Care 111 mg/dl (70-99)
[2024-07-19] MEDS: LASIX 40 MG PO (12:18)
[2024-07-19] MEDS: KCL 20 MEQ PO (12:18)
--- NOTE | 2024-07-19 12:31 | CM ---
Chart reviewed. Patient is independent of ADLS, lives with a roommate in a split level house, 5 [address], 0 DME. Patient's girlfriend to stay with the patient when he goes home. Plan is for the patient to return home with CT Transitional RN. CM to
follow
[2024-07-19] MEDS: NSS IV (12:37)
--- NOTE | 2024-07-19 13:12 | PTCARENOTE ---
2 view CXR completed; Cordis discontinued; Patient ambulated in hallways and did stairs with cardiac rehab; PO Lasix 40 and PO Potassium ordered and given; Patient showered with CHG and now resting comfortably in chair
[2024-07-19 14:06] LABS: Hematocrit 23.3 % (39.0-52.0); Hemoglobin 7.9 g/dL (13.0-18.0); Mean Corp Hgb Conc. 33.9 g/dL (33.0-37.0); Mean Corpuscular Hgb 31.5 pg (27.0-31.0); Mean Corpuscular Volume 92.8 fL (80.0-94.0); Mean Platelet Volume 10.4 fL (7.4-10.4); Platelet Count 160 10^3/uL (130-400); Red Blood Cell Count 2.51 10^6/uL (4.70-6.10); Red Cell Dist. Width 13.2 % (11.5-14.5); White Blood Cell Count 11.1 10^3/uL (4.8-10.8)
--- NOTE | 2024-07-19 14:14 | W.[place]-PDMP ---
[place]-PD[place]
-
Checked the [place]- Prescription Drug Monitoring Program website, no red flags identified; safe to proceed with prescription.
--- NOTE | 2024-07-19 14:27 | W.DCSUMMARY ---
Discharge Summary
Discharge Data
Date of Admission: 07/15/24
Date of Discharge: 07/19/24
-
Pending Results: No
Hospital Course
Rigoberto Maki is a 64-year-old male admitted electively to [facility] on 07/15/2024 for coronary artery bypass grafting. His past medical history significant for diabetes, hyperlipidemia, skin cancer, positive family history for coronary
disease. He is a former smoker who quit 15 years ago.
On the morning of 07/15/2024 patient was admitted to [facility] and later that morning was brought to the operating room where he underwent coronary artery bypass grafting with 4 distal anastomoses. The left internal mammary artery was
utilized to bypass the left anterior descending coronary artery. Single separate saphenous vein grafts were placed to the diagonal coronary artery, obtuse marginal, and right posterior descending coronary artery. Also at this time he had exclusion
of his left atrial appendage with a AtriClip.
He tolerated procedure well and was returned to the surgical intensive care unit where he arrived in hemodynamically stable condition. He was initially supported on low-dose Levophed. He was able to be extubated later in the afternoon on the day
of surgery. Levophed was able to be weaned by the first postoperative day.
Postoperative day #1: Blood pressure stable and Levophed weaned to off. Daley removed. Metformin and Januvia resumed. Farxiga started.
Postoperative day #2: Participated in cardiac rehabilitation. Urinary retention requiring straight cath x 2 but eventually voided.
Postoperative day #3: Morning labs showed low hemoglobin and was transfused 1 unit of packed RBCs. He received 40 mg IV Lasix.
Postoperative day #4: Continued maintaining sinus rhythm. Continue to participate in cardiac rehabilitation and was ambulating increased distances. He climbed stairs with cardiac rehab and ambulated the dubois without difficulty. He was able to be
discharged later in the afternoon of postoperative day #4.
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
He will be followed by our transitional care nurses and was given appointment to follow-up with Dr. Amanuel Franklin in the office.
He was instructed to call the office with any questions post discharge.
Discharge Plan
-
Patient Disposition: Home (Routine Discharge)
Discharge Diagnosis/Procedures: CAD s/p CABG
Condition: Good
Diet: 2 Gram Sodium
Activity: No strenuous activity
Driving Restrictions: Not until seen by your Dr
Bathing Restrictions: OK to Shower
Blood Work: CBC and BMP in one week
Other Services: Cardiac Rehab
Specialty Instructions: Weigh Daily- Call MD for wt gain/loss 3 lbs overnight/5 lbs in 1 week
Activity Restrictions/Additional Instructions:
ACTIVITY:
-No strenuous activity: no heavy lifting, pushing, pulling anything over 15 pounds for one month
-continue to use stairs as tolerated
DRIVING RESTRICTIONS:
-No driving for one month or until approved by your surgeon
WOUND CARE:
-Shower daily. Use soap & water.
-No lotions, creams or powders on incision area.
DIET:
-continue a low fat/low cholesterol diet.
-IF you are diabetic, continue carb controlled diet.
CARDIAC REHAB:
-Please make appointment to start in 5-6 weeks with your local hospital program. (See Cardiac Rehabilitation Discharge Booklet).
[facility]: [phone]
SPECIALTY INSTRUCTIONS:
-Weigh yourself daily. Call your physician for any weight gain/loss of 3 lbs overnight or 5 lbs in one week.
-REPORT any clicking noise or uneven appearance of your sternum to your surgeon immediately.
-If you smoke, you are instructed to quit. The [place] smoking hotline phone number is [phone]
Referrals:
CT Transitional Care Nurse [Outside] (The Cardiothoracic Transitional Care Nurse will call you to set up a visit in 1-2 days.)
Kyle Dent MD [Active] - 08/30/24 3:40 pm
Maggi Walton CRNP [Family Provider] -
Amanuel Franklin MD [Active] - 08/17/24 2:30 pm
Prescriptions:
New
cyclobenzaprine 10 mg Tablet
5 mg PO Q8HPRN PRN (Reason: muscle spasm) Qty: 30 0RF
clopidogrel 75 mg Tablet
75 mg PO DAILY Qty: 30 0RF
acetaminophen 325 mg Tablet
650 mg PO Q4HPRN PRN (Reason: mild pain,headache,temp >101F ) Qty: 0 0RF
gabapentin 100 mg Capsule
100 mg PO TID Qty: 30 0RF
oxycodone 5 mg Tablet
2.5 mg PO Q4HPRN PRN (Reason: severe pain) Qty: 7 0RF
Continued
multivitamin Tablet
1 tab PO DAILY
metformin 500 mg Tablet
500 mg PO AC
rosuvastatin 20 mg Tablet
20 mg PO QPM
Januvia 100 mg Tablet
100 mg PO QPM
mecobalamin (vitamin B12) 1,000 mcg Tablet,Chewable
1,000 mcg PO DAILY
aspirin 81 mg Capsule
81 mg PO DAILY
glipizide 5 mg Tablet Extended Release 24hr
5 mg PO DAILY
nitroglycerin 0.4 mg tablet, sublingual
0.4 mg sublingual [id number] PRN (Reason: chest pain) Qty: 25 2RF
metoprolol succinate 25 mg tablet extended release 24 hr
25 mg PO DAILY
Held
omega-3 fatty acids
1 cap PO DAILY
Hold Instructions: Resume on 07/26/24.
Discharge Orders:
Discharge Patient (As Directed); Ordered 07/19/24
Ordered By: Lidia Jaimes
Care Plan Goals
Care Plan Goals:
Problem: Readiness for enhanced knowledge related to diagnosis and treatment plan
Goal: Understand your diagnosis and treatment plan needs, including medications if applicable.
Instructions: Know your diagnosis, underlying causes and treatment plan options, including medications if applicable. Consult with your health care team to learn about your diagnosis and treatment plan, including medications if applicable.
Discharge Date and Time
Print Language: MOROCCAN
--- NOTE | 2024-07-19 15:46 | PTCARENOTE ---
Patient being discharged home; States full understanding of discharge instructions and has no further questions at this time; VSS; IV access and telemetry pack removed; Patient belongings taken with patient and spouse; Patient taken by wheelchair by
transport to spouse's car
--- NOTE | 2024-07-21 11:17 | PN.CDI ---
CDI
- -
CDI:
Physician Documentation Request
Admit Date: 07/15/24 04:53
Dear Doctor Rigoberto,
Patient admitted for CABG x 4 on 07/15.
CT surgery progress notes include a diagnosis of 'Acute postop Vasoplegia' from 07/16-07/19
Please further clarify the diagnosis of vasoplegia:
Vasogenic post procedural shock
cardiogenic shock
Other
Use of terms such as suspected, likely, concern for, or probable (associated with a specific diagnosis that is being evaluated, monitored, or treated as if it exists) are acceptable and can be coded in the inpatient setting, when documented at the
time of discharge.
Thank you,
Mela Kwok RN, BSN
CDI Specialist
tiger text
Please use your independent medical judgment in providing your response.
== END 2024-07-19 15:56 | disposition home or self-care (01) | DRG 235 ==
LOC: CVICU 04:53
PROVIDERS: Anesthesiology; Internal Medicine Cardiovascular Disease; Nurse Practitioner; Physician Assistant Medical; Physician Assistant Surgical; ADMITTING PHYSICIAN Thoracic Surgery (Cardiothoracic Vascular Surgery); CONSULT PHYSICIAN Internal Medicine Critical Care Medicine; FAMILY PHYSICIAN Nurse Practitioner Family
PROC: 02L70CK Occlusion of Left Atrial Appendage with Extraluminal Device, Open Approach (ICD-10-PCS; 2024-07-15)
PROC: 30233R1 Transfusion of Nonautologous Platelets into Peripheral Vein, Percutaneous Approach (ICD-10-PCS; 2024-07-15)
PROC: 021209W Bypass Coronary Artery, Three Arteries from Aorta with Autologous Venous Tissue, Open Approach (ICD-10-PCS; 2024-07-15)
PROC: B24BZZ4 Ultrasonography of Heart with Aorta, Transesophageal (ICD-10-PCS; 2024-07-15)
PROC: 5A1221Z Performance of Cardiac Output, Continuous (ICD-10-PCS; 2024-07-15)
PROC: 06BP4ZZ Excision of Right Saphenous Vein, Percutaneous Endoscopic Approach (ICD-10-PCS; 2024-07-15)
PROC: 02100ZC Bypass Coronary Artery, One Artery from Thoracic Artery, Open Approach (ICD-10-PCS; 2024-07-15)
PROC: 30233N1 Transfusion of Nonautologous Red Blood Cells into Peripheral Vein, Percutaneous Approach (ICD-10-PCS; 2024-07-18)
DX: I25.10 Atherosclerotic heart disease of native coronary artery without angina pectoris (principal); T81.19XA Other postprocedural shock, initial encounter; D68.9 Coagulation defect, unspecified; D62 Acute posthemorrhagic anemia; J98.11 Atelectasis; E78.00 Pure hypercholesterolemia, unspecified; N52.9 Male erectile dysfunction, unspecified; E11.65 Type 2 diabetes mellitus with hyperglycemia; E83.51 Hypocalcemia; E27.8 Other specified disorders of adrenal gland; E87.70 Fluid overload, unspecified; E86.1 Hypovolemia; R91.1 Solitary pulmonary nodule; N99.89 Other postprocedural complications and disorders of genitourinary system; Y83.2 Surgical operation with anastomosis, bypass or graft as the cause of abnormal reaction of the patient, or of later complication, without mention of misadventure at the time of the procedure; Z79.82 Long term (current) use of aspirin; Z79.84 Long term (current) use of oral hypoglycemic drugs; Z79.899 Other long term (current) drug therapy; Z85.828 Personal history of other malignant neoplasm of skin; Z82.49 Family history of ischemic heart disease and other diseases of the circulatory system; Z87.891 Personal history of nicotine dependence
CPT/HCPCS: 36415; 71045; 71046; 80048; 80053; 80061; 81003; 81015; 82248; 82330; 82565; 82805; 82947; 82962; 83036; 83735; 84132; 84302; 84520; 85014; 85018; 85025; 85027; 85049; 85610; 85730; 86803; 86850; 86900; 86901; 86920; 87070; 87340; 87389; 93005; 93312; 93320; 93325; 93880; 94002; 94010; P9016; P9045; P9073

== ENCOUNTER 2024-07-23 02:30 | Observation (INO) | payer OTHER, SELFPAY ==
[2024-07-22 20:46] VITALS: BP 100/62
[2024-07-22 21:00] VITALS: BP 110/60
[2024-07-22 21:03] LABS: % Basophils 0.4 % (0-2); % Eosinophils 3.8 % (0-6); % Immature Granulocytes 0.8 % (0-0.5); % Lymphocytes 12.8 % (20.5-51.1); % Monocytes 7.8 % (1.7-9.3); % Neutrophils 74.4 % (42.2-75.2); Absolute Eosinophils 0.4 10^3/uL (0-0.7); Absolute Immature Granulocytes 0.1 10^3/uL (0-0.05); Absolute Lymphocytes 1.3 10^3/uL (1.2-3.4); Absolute Monocytes 0.8 10^3/uL (0.1-0.6); Absolute Neutrophils 7.6 10^3/uL (1.4-6.5); Hematocrit 23.9 % (39.0-52.0); Mean Corp Hgb Conc. 33.5 g/dL (33.0-37.0); Mean Corpuscular Hgb 31.3 pg (27.0-31.0); Mean Corpuscular Volume 93.4 fL (80.0-94.0); Mean Platelet Volume 9.5 fL (7.4-10.4); Nucleated Red Blood Cells % 0 % (-); Platelet Count 276 10^3/uL (130-400); Red Blood Cell Count 2.56 10^6/uL (4.70-6.10); Red Cell Dist. Width 13.3 % (11.5-14.5); White Blood Cell Count 10.3 10^3/uL (4.8-10.8)
[2024-07-22 21:18] LABS: ALT (SGPT) 76 U/L (0-50); AST (SGOT) 48 U/L (17-59); Albumin 3.4 g/dl (3.5-5.0); Alkaline Phosphatase 78 U/L (38-126); Blood Urea Nitrogen 27 mg/dl (9-20); Calcium 8.8 mg/dl (8.4-10.2); Carbon Dioxide 25 mmol/L (22-30); Chloride 100 mmol/L (98-107); Glucose 93 mg/dl (70-99); Potassium 4.2 mmol/L (3.5-5.1); Sodium 134 mmol/L (135-145); Total Bilirubin 0.7 mg/dl (0.2-1.3); Total Protein 5.8 g/dl (6.3-8.2); eGFR > 60.00
--- NOTE | 2024-07-22 22:00 | ED.GENMED ---
History of Present Illness
General
Chief Complaint: Post Operative Problem(s)
Time Seen by Provider: 07/22/24 20:54
History of Present Illness
History of Present Illness:
64-year-old male with history of CAD status post CABG on 07/15, quadruple bypass, presenting to the emergency department for left-sided chest pain. Patient reports prior to arrival around 8 PM had nonexertional episode of left-sided chest pain.
Notes that the pain radiated down his left arm. He called the medics, took 4 aspirin and was administered 1 spray of nitro, now has resolution of pain. Reports a complicated hospital course with his CABG, discharged POD4. Patient currently
asymptomatic. Denies any difficulty breathing. Denies fever or cough. Denies additional acute medical complaints
Past History
Past History
ED Past Medical History: Cancer (Skin cancer), Hypercholesterolemia and NIDDM
ED Past Surgical History: Other
Social History
Tobacco: Non-smoker
Alcohol: Other
Personal: Other
Living: with family
Employment: Employed
Family History
Family History: Other
Phy Exam
Physical Exam
Physical Exam:
General: Well-appearing, no clinical signs of dehydration, nontoxic and in no acute distress
HEENT: protecting airway
Neck: appears supple
CV: Normal heart rate, regular rhythm, no evidence of cyanosis. Healing midline incision from recent CABG.
Resp: No accessory muscle use, no increased work of breathing, lungs clear to auscultation bilaterally
Abd: Soft and non-distended, no tenderness to palpation
Extremities: No deformities, no swelling, no erythema
Neuro: alert, no focal neurologic deficit
: deferred
Rectal: deferred
Psych: Normal affect
Skin: Intact
Scores
Heart Score for Chest Pain Patients
STEMI patient?: No
History: Slightly or Non-Suspicious
ECG: Nonspecific Repolarization
Age: >/= 65 years
Risk Factors: >/= 3 Risk Factors or History of CAD
Troponin: >/= 3 x Normal Limit
Heart Score for Chest Pain Patients: 7
Heart Score Risk: 72.7 % MACE over next 6 weeks
Course
Orders/Labs/Results
Orders:
Orders
07/22/24 20:50
Electrocardiogram (*1) Urgent
Reason for Study: Chest Pain
Cardiac Monitoring- Treatment ONCE
EKG- Treatment ONCE
IV Insert/Care/Rem.- Treatment PRN
O2 Therapy [RESP] Urgent
Titrate/Wean O2 to maintain O2 sat greater than (%): 90
Special Instructions: Maintain sats >/=90%
Pulse Ox/spot Check [RESP] Urgent
Quantity: 1
Special Instructions: ON ROOM AIR
07/22/24 20:56
Complete Blood Count/With Diff Urgent
Comprehensive Metabolic Panel Urgent
Troponin I Urgent
07/22/24 21:40
CR Chest - 2 Views Urgent
Comment:
Reason For Exam: chest pain, s/p CABG
Abnormal Lab Results
07/22/24
20:56
RBC 2.56 L 10^6/uL
(4.70-6.10)
Hgb 8.0 L g/dL
(13.0-18.0)
Hct 23.9 L %
(39.0-52.0)
MCH 31.3 H pg
(27.0-31.0)
Abs Immat Gran (auto) 0.1 H 10^3/uL
(0-0.05)
Absolute Neuts (auto) 7.6 H 10^3/uL
(1.4-6.5)
Absolute Monos (auto) 0.8 H 10^3/uL
(0.1-0.6)
Immature Gran % 0.8 H %
(0-0.5)
Lymphocytes % 12.8 L %
(20.5-51.1)
Sodium 134 L mmol/L
(135-145)
BUN 27 H mg/dl
(9-20)
ALT 76 H U/L
(0-50)
Troponin I 0.500 H* ng/ml
Total Protein 5.8 L g/dl
(6.3-8.2)
Albumin 3.4 L g/dl
(3.5-5.0)
07/22/24 20:56
07/22/24 20:56
Vital Signs
Initial and Last Documented VS:
Initial Vital Signs
Temp Pulse Resp BP Pulse Ox
99.1 F 94 22 100/62 97
07/22/24 20:46 07/22/24 20:46 07/22/24 20:46 07/22/24 20:46 07/22/24 20:46
Last Documented Vital Signs
Temp Pulse Resp BP Pulse Ox
99.1 F 94 22 100/62 97
07/22/24 20:46 07/22/24 20:46 07/22/24 20:46 07/22/24 20:46 07/22/24 20:46
MDM/Problems Addressed
MDM/Problems Addressed:
64-year-old male with recent quadruple bypass procedure on 07/15 presenting for episode of left-sided chest pain that has since resolved after nitroglycerin. Vital signs on arrival are normal.
On exam patient is resting comfortably, now asymptomatic. Overall benign cardiac and pulmonary exam, healing midline incision from recent CABG. Reassuring that patient's pain has since resolved, however did receive nitro prior to arrival. Patient
high risk given recent CABG a week ago. Early graft closure is a consideration. Pain could also be secondary to musculoskeletal quality from major surgery. Pericarditis also consideration, however without evidence of pericarditis on EKG. Will
continue to monitor with plan for admission for cardiac monitoring and troponin trend given high risk nature of patient. Hemodynamically stable at this time.
*EKG
Interpreted by ED Provider?: Yes
EKG Intrepretation Date: 07/22/24
EKG Intrepretation Time: 22:08
Interpretation: normal
Comparison EKG: no changes (07/16/24)
Heart Rate: 95
Rate: normal
Rhythm: sinus
Dexter: normal axis
Interval: normal interval
QRS Pattern: normal QRS
Ischemia: non-specific ST changes
*Critical Care Note
Total Time (30-74mins, 75-104mins- exclusive of procedures): Not Applicable
ED Attending Note
-
Portions of this chart may have been created with voice recognition software.� Occasional wrong word or��sound alike� substitutions may have occurred due to the inherent limitations of voice recognition software.
Discharge Plan
Departure
Prescriptions:
No Action
multivitamin Tablet
1 tab PO DAILY
metformin 500 mg Tablet
500 mg PO AC
rosuvastatin 20 mg Tablet
20 mg PO QPM
Januvia 100 mg Tablet
100 mg PO QPM
mecobalamin (vitamin B12) 1,000 mcg Tablet,Chewable
1,000 mcg PO DAILY
aspirin 81 mg Capsule
81 mg PO DAILY
glipizide 5 mg Tablet Extended Release 24hr
5 mg PO DAILY
nitroglycerin 0.4 mg tablet, sublingual
0.4 mg sublingual [id number] PRN (Reason: chest pain) Qty: 25 2RF
omega-3 fatty acids
1 cap PO DAILY
metoprolol succinate 25 mg tablet extended release 24 hr
25 mg PO DAILY
cyclobenzaprine 10 mg Tablet
5 mg PO Q8HPRN PRN (Reason: muscle spasm) Qty: 30 0RF
clopidogrel 75 mg Tablet
75 mg PO DAILY Qty: 30 0RF
acetaminophen 325 mg Tablet
650 mg PO Q4HPRN PRN (Reason: mild pain,headache,temp >101F ) Qty: 0 0RF
gabapentin 100 mg Capsule
100 mg PO TID Qty: 30 0RF
oxycodone 5 mg Tablet
2.5 mg PO Q4HPRN PRN (Reason: severe pain) Qty: 7 0RF
Interventions
Interventions:
*Risk Screen - Suicide Last Done: 07/22/24 20:46
*General Assessment Last Done: 07/22/24 20:46
*Neglect/Abuse Screening Last Done: 07/22/24 20:46
ED-Skin Assessment Last Done: 07/22/24 21:26
Discharge Date and Time
Print Language: LAO
[2024-07-22 22:41] VITALS: BP 114/62
[2024-07-22 23:00] VITALS: BP 107/60
[2024-07-23] VITALS (10 sets, daily range): BP systolic 97–131; BP diastolic 57–73
--- NOTE | 2024-07-23 01:27 | HPS.HSE ---
Family Physician
-
Family Physician: PAZ Rhodes
Chief Complaint
-
Chest pain
History of Present Illness
This is a 64-year-old with history of CAD was is recently status post four-vessel CABG presents to the emergency department with chest pain lasted about 20 minutes.
Patient reported that did been in usual state of health up until episode. He did walked down and then up 75 stairs when he noticed left-sided shoulder and arm pain. The pain was not coming from the chest itself. Was nauseated with some shortness
of breath. There was no diaphoresis nausea or vomiting. He took 1 dose of baby aspirin and called EMS. He was then instructed to take 3 additional baby aspirin and 1 sublingual nitroglycerin which he did. By time EMS arrived the pain was
subsiding. He said right around 20 minutes when the pain had complete relief. He took a dose of nitroglycerin spray on the ambulance but at that time he said this. The pain was already going away. He currently is chest pain-free and denies any
other symptoms.
In the emergency department he was afebrile, blood pressure was 108/71 with a pulse of 85 and temp of 99.1. He was satting 100% on room air. His troponin was 0.5. ECG showed a normal sinus rhythm without any acute ST or T wave changes. He has
chronic anemia with hemoglobin of 8.0 otherwise CBC was unremarkable. Electrolytes BUN/creatinine were all within the normal range. Chest x-ray shows no acute abnormality, just small bilateral pleural effusion.
Medical History
Past Medical History
Past Medical History: Reports CAD (Status post CABG) and NIDDM
Past Surgical History: Reports Cardiac (Status post four-vessel CABG on July 15) and Other (Inguinal hernia repair)
Social History
Tobacco: Former Smoker
Alcohol: None
Drug: None
Personal:
Living: With Family
Family History
Family History: CAD
Allergies / Home Medications
Allergies reflects when Allergies were last updated in [facility].
Home Medications with original date entered in [facility]
Allergy/Medication List:
Allergies
Allergy/AdvReac Type Severity Reaction Status Date / Time
No Known Allergies Allergy Verified 07/22/24 20:46
Home Medications
aspirin 81 mg capsule 81 mg PO DAILY Blood Clot Prevention/Tx 11/22/22
mecobalamin (vitamin B12) 1,000 mcg chewable tablet 1,000 mcg PO DAILY Supplement 11/22/22
metformin 500 mg tablet 500 mg PO AC Diabetes 11/22/22
multivitamin 1 tab PO DAILY Supplement 11/22/22
rosuvastatin 20 mg tablet 20 mg PO QPM High Cholesterol 11/22/22
sitagliptin phosphate 100 mg tablet (Januvia) 100 mg PO QPM Diabetes 11/22/22
glipizide 5 mg tablet, extended release 24 hr 5 mg PO DAILY Diabetes 06/18/24
nitroglycerin 0.4 mg sublingual tablet 0.4 mg sublingual [id number] PRN chest pain #25 tabs 06/18/24
omega-3 fatty acids 1 cap PO DAILY 07/09/24
metoprolol succinate 25 mg tablet,extended release 24 hr 25 mg PO DAILY Heart Disease/Condition 07/16/24
acetaminophen 325 mg tablet 650 mg (2 x 325 mg) PO Q4HPRN PRN mild pain,headache,temp >101F #0 tabs 07/19/24
clopidogrel 75 mg tablet 75 mg PO DAILY #30 tabs 07/19/24
cyclobenzaprine 10 mg tablet 5 mg (1/2 x 10 mg) PO Q8HPRN PRN muscle spasm #30 tabs 07/19/24
gabapentin 100 mg capsule 100 mg PO TID post-op pain #30 caps 07/19/24
oxycodone 5 mg tablet 2.5 mg (1/2 x 5 mg) PO Q4HPRN PRN severe pain #7 tabs 07/19/24
Review of Systems
-
History Source: Patient
Constitutional: Reports No Symptoms
EENT: Reports No Symptoms
Respiratory: Reports No Symptoms
Cardiac: Reports Chest Pain
Abdomen/GI: Reports No Symptoms
: Reports No Symptoms
Musculoskeletal: Reports No Symptoms
Skin: Reports No Symptoms
Neurological: Reports No Symptoms
Endocrine: Reports No Symptoms
Hematologic/Lymphatic: Reports No Symptoms
Psych: Reports No Symptoms
Physical Exam
Vital Signs
Vital Signs
Temp Pulse Resp BP Pulse Ox
99.1 F 85 17 108/71 100
07/22/24 20:46 07/23/24 01:00 07/23/24 01:00 07/23/24 01:00 07/23/24 01:00
Physical Exam
General: Well Developed, Well Nourished, Comfortable and Conversant
HEENT: NormoCephalic, Anicteric, Moist mucous membranes and Atraumatic
Respiratory: Clear
Cardiac: S1/S2 and Regular Rhythm
Breast: Deferred by me
GI: Soft, Non Tender, Non Distended and Normal Bowel Sounds
Rectal: Deferred by Provider
Genito-urinary: Deferred by me
Musculoskeletal: No Clubbing, No Cyanosis and No Edema
Skin: Warm
Neuro: AO x 3 and Nonfocal/grossly intact
Hematologic/Lymphatic: No Lymphadenopathy
Psych: Calm
Laboratory Results
-
07/22/24 20:56
07/22/24 20:56
Laboratory Results
Total Bilirubin 0.7 mg/dl (0.2-1.3) 07/22/24 20:56
AST 48 U/L (17-59) 07/22/24 20:56
ALT 76 U/L (0-50) H 07/22/24 20:56
Alkaline Phosphatase 78 U/L (38-126) 07/22/24 20:56
Troponin I 0.500 ng/ml H* 07/22/24 20:56
Data Reviewed
-
Diagnostic Radiology: Image Personally Visualized and interpreted and Report Reviewed by me
Medical Tests (Nuc Med, Echo, EKG etc): Image Personally Visualized and interpreted
Lab Data: Labs Reviewed by me
Old Records: Reviewed
Impression/Plan
-
IMPRESSION:
64-year-old who is postop day #8 status post four-vessel CABG presenting to the emergency department with episode of left arm pain immediately after exerting himself that lasted for about 20 minutes now resolved. ECG is nonischemic and troponin is
0.5.
PLAN:
1. Chest pain - Arm pain likely radiating form the chest. No trauma or injury. No arm tenderness or pain associated with movement. Chest wall without palpable tenderness. ECG non-ischemic. trop 0.5. Xray clear with small rula pl effusions.
- admit to telemetry observation
- cycle enzymes
- s/p aspirin and ntg and CP free
- continue plavix, statin
- continue metoprolol,
- cardiology consult
2. DM II
- continue metformin and javuniva
- continue glipizide
DVT PPX - lovenox sq
Code status - full code
[2024-07-23 02:09] LABS: Troponin I 0.479 ng/ml
[2024-07-23 06:11] LABS: Troponin I 0.405 ng/ml
--- NOTE | 2024-07-23 06:38 | W.PN.UPDATE ---
Update Note
Progress Note Update
RN reports patient reporting right eye vision changes and noted nystagmus in right eye when checked. Patient seen and evaluated. Reports he had right eye vision changes, sensitivity to light, and nystagmus noticed at home yesterday and feeling the
same now. States he can see letters on black background better than letters on white background. Denies headaches, blur vision, tinnitus,n/v, no blisters, or rash noted near eye. NIHSS done by RN and is zero. Will order CT scan of the head now.
Patient reports symptoms is going away at present. Denies any chest pain, SOB.
[2024-07-23] MEDS: PLAVIX 75 MG PO (09:25)
[2024-07-23] MEDS: ASPIR LOW (ENTERIC COATED) 81 MG PO (09:25)
[2024-07-23] MEDS: NEURONTIN 100 MG PO (09:25)
[2024-07-23] MEDS: GLUCOPHAGE 500 MG PO ×2 (09:25→13:09)
[2024-07-23] MEDS: GLUCOTROL XL (EXTENDED RELEASE) 5 MG PO (09:25)
[2024-07-23 09:29] LABS: Glucose - Point of Care 130 mg/dl (70-99)
--- NOTE | 2024-07-23 09:41 | W.PN.HOSP.TC ---
Today's Communication/Plan
-
Cardiology and neurology eval. Discharge planning
Assessment / Plan
Assessment / Plan
Physical exam:
General: Well Developed, Well Nourished and No Apparent Distress
HEENT: Normocephalic, Atraumatic and Moist Mucous Membranes
Respiratory: Clear to Auscultation; Negative Wheezes, Rales or Rhonchi
Cardiac: Regular Rhythm and S1/S2
GI: Soft, Nontender and Nondistended
Musculoskeletal: No Clubbing, No Cyanosis and No Edema
Neuro: Awake, Alert and Oriented
Psych: Calm
A/P:
1. Chest pain -
-Appears to be atypical in presentation and elevated troponin due to nonischemic myocardial injury.
- admit to telemetry observation
- cycle enzymes
- s/p aspirin and ntg and CP free
- continue plavix, statin
- continue metoprolol,
- cardiology consult appreciated. He had an updated echocardiogram unremarkable. Discussed with cardiology he is cleared for discharge today.
2. DM II
- continue metformin and javuniva
- continue glipizide
3. Visual changes abnormalities
CT scan of the head unremarkable
He does not have any other accompanying symptoms of neurological deficit nevertheless I did ask neurology to see him given his risk factors. He is very eager to go home today and he is neurological completely asymptomatic so I discussed with
neurology and will have him discharge and complete evaluation as outpatient.
4. Anemia
Although it is low it is actually better than last blood work we have on records
Continue to monitor as outpatient
DVT PPX - lovenox sq
Code status - full code
Anticipated Discharge: Today
Subjective/Interval History
-
Date of Service: July 23, 2024
Patient denies any chest pain. He did have some left arm discomfort prior to coming in. He also had some visual sensitivity on the right eye but denies any slurred speech or focal weakness. He is completely asymptomatic today.
Objective Data
-
Vital Signs:
Vital Signs
Temp Pulse Resp BP Pulse Ox
98.6 F 82 16 108/61 96
07/23/24 07:49 07/23/24 04:45 07/23/24 04:45 07/23/24 04:00 07/23/24 04:45
[2024-07-23] MEDS: TOPROL XL PO (10:47)
--- NOTE | 2024-07-23 11:15 | W.DCSUMMARY ---
Discharge Summary
Discharge Data
Date of Admission: 07/23/24
Date of Discharge: 07/23/24
-
Pending Results: No
Hospital Course
Patient is 64 years old male with history of diabetes mellitus, dyslipidemia, former smoker, CAD, recent CABG came into the hospital with dyspnea and left upper arm discomfort and found to have some elevated troponins. Cardiology consulted.
Patient was kept on cardiac monitoring. EKG unremarkable for any signs of active ischemia. Cardiology evaluated the patient and updated on echocardiogram and it came back unremarkable. Cardiology cleared him for discharge. He also mentions some
facial abnormality probably some light sensitivity on the right eye intermittent in nature but no other associated neurological deficits such as focal weakness or slurred speech or other and he is completely asymptomatic by the time of our
evaluation. Neurology was consulted the patient was very eager to go home today and while neurology saw him she was going to go back to evaluate. Patient is very eager to go home today so I reached out to neurology and Dr. Jackson recommended that
he completes his evaluation as outpatient at this point. No other events were noticed. He will be discharged in relatively stable condition today.
Discharge duration: 35 minutes
Discharge Plan
-
Patient Disposition: Home (Routine Discharge)
Discharge Diagnosis/Procedures: Elevated troponin due to nonischemic myocardial injury. Recent coronary artery bypass graft. Transient visual changes.
Diet: Low Cholesterol
Activity: As tolerated
Blood Work: PCP to order CBC, BMP within 1 week
Referrals:
Kyle Dent MD [Active] - in one to two weeks
Maggi Walton CRNP [Family Provider] - in less than 1 week
Leticia Jackson MD [Active] - in one to two weeks
Prescriptions:
Continued
multivitamin Tablet
1 tab PO DAILY
metformin 500 mg Tablet
500 mg PO AC
rosuvastatin 20 mg Tablet
20 mg PO QPM
Januvia 100 mg Tablet
100 mg PO QPM
mecobalamin (vitamin B12) 1,000 mcg Tablet,Chewable
1,000 mcg PO DAILY
aspirin 81 mg Capsule
81 mg PO DAILY
glipizide 5 mg Tablet Extended Release 24hr
5 mg PO DAILY
nitroglycerin 0.4 mg tablet, sublingual
0.4 mg sublingual [id number] PRN (Reason: chest pain) Qty: 25 2RF
omega-3 fatty acids
1 cap PO DAILY
metoprolol succinate 25 mg tablet extended release 24 hr
25 mg PO DAILY
cyclobenzaprine 10 mg Tablet
5 mg PO Q8HPRN PRN (Reason: muscle spasm) Qty: 30 0RF
clopidogrel 75 mg Tablet
75 mg PO DAILY Qty: 30 0RF
acetaminophen 325 mg Tablet
650 mg PO Q4HPRN PRN (Reason: mild pain,headache,temp >101F ) Qty: 0 0RF
gabapentin 100 mg Capsule
100 mg PO TID Qty: 30 0RF
oxycodone 5 mg Tablet
2.5 mg PO Q4HPRN PRN (Reason: severe pain) Qty: 7 0RF
Discharge Orders:
Discharge Patient (As Directed); Ordered 07/23/24
Ordered By: David Keller
Care Plan Goals
Care Plan Goals:
Problem: Readiness for enhanced knowledge related to diagnosis and treatment plan
Goal: Understand your diagnosis and treatment plan needs, including medications if applicable.
Instructions: Know your diagnosis, underlying causes and treatment plan options, including medications if applicable. Consult with your health care team to learn about your diagnosis and treatment plan, including medications if applicable.
Discharge Date and Time
Discharge Date/Time: 07/23/24 15:53
Print Language: DUTCH
[2024-07-23 11:58] LABS: Glucose - Point of Care 178 mg/dl (70-99)
--- NOTE | 2024-07-23 12:02 | CON.CAR ---
Addendum entered and electronically signed by Kyle Dent MD 07/23/24 14:43:
Patient seen and examined in collaboration with [facility] [employer] [facility] [facility]; agree with below.
-Patient recently underwent CABG on 07/15/2024; presenting with left upper arm pain today.
-The patient's arm pain was sharp, and appears to be atypical in nature.
-Minimal cardiac troponin most likely secondary to acute nonischemic myocardial injury secondary to transient post-surgical (CABG) pericarditis; resolving.
-No acute findings on EKG.
-Echocardiogram today unchanged from previous; normal LVEF (55-60%) with no significant valvular disease.
-The patient appears to be relatively stable from a cardiac standpoint, and can follow-up with Cardiology as an outpatient.
-No further cardiac recommendations at this time.
Original Note:
Consultation
Consultation Request
Date/Time Consultation Requested: 07/23/24 0475
Date/Time Consultation Performed: 07/23/24 1130
Requesting Provider: Dr. Henson
Performing Provider: Elo MULLEN for Dr. Dent
Reason for Consultation: left arm pain and SOB
Medical History
-
Chief Complaint: left arm pain and SOB
History of Present Illness:
64 y/o male with dyslipidemia, diabetes, former smoker, and CAD s/p CABG x [address] Franklin 07/15/24. He was discharged on 07/19/24. Last night around 8 PM, he was walking up the stairs and felt SOB and left upper arm discomfort (sharp). It lasted
about 20-30 minutes total. He took aspirin and nitro. He feels fine now. He has also reported some light/visual sensitivities to his right eye and is getting a neuro work-up. He has no symptoms at the time of my assessment. EKG is unremarkable.
Trops are minimally elevated in the setting of recent bypass surgery and are trending down. Of note, his anginal equivalent prior to surgery was back pain, which he has not had. He has also not had chest pain.
Past Medical History
Past Medical History: CAD, Hypercholesterolemia and NIDDM
Social History
Tobacco: Former Smoker
Family History
Family History: Reviewed & Not Pertinent
Allergies / Home Medications
Allergy/AdvReac Type Severity Reaction Status Date / Time
No Known Allergies Allergy Verified 07/22/24 20:46
�Medication �Instructions �Recorded �Confirmed �Type
aspirin 81 mg capsule 81 mg PO DAILY Blood Clot 11/22/22 07/15/24 History
Prevention/Tx
mecobalamin (vitamin B12) 1,000 1,000 mcg PO DAILY Supplement 11/22/22 07/15/24 History
mcg chewable tablet
metformin 500 mg tablet 500 mg PO AC Diabetes 11/22/22 07/15/24 History
multivitamin 1 tab PO DAILY Supplement 11/22/22 07/15/24 History
rosuvastatin 20 mg tablet 20 mg PO QPM High Cholesterol 11/22/22 07/15/24 History
sitagliptin phosphate 100 mg 100 mg PO QPM Diabetes 11/22/22 07/15/24 History
tablet (Januvia)
glipizide 5 mg tablet, extended 5 mg PO DAILY Diabetes 06/18/24 07/15/24 History
release 24 hr
nitroglycerin 0.4 mg sublingual 0.4 mg sublingual [id number] PRN 06/18/24 07/15/24 Rx
tablet chest pain #25 tabs
omega-3 fatty acids 1 cap PO DAILY 07/09/24 07/15/24 History
metoprolol succinate 25 mg 25 mg PO DAILY Heart 07/16/24 07/15/24 History
tablet,extended release 24 hr Disease/Condition
acetaminophen 325 mg tablet 650 mg (2 x 325 mg) PO Q4HPRN PRN 07/19/24 Rx
mild pain,headache,temp >101F #0
tabs
clopidogrel 75 mg tablet 75 mg PO DAILY #30 tabs 07/19/24 Rx
cyclobenzaprine 10 mg tablet 5 mg (1/2 x 10 mg) PO Q8HPRN PRN 07/19/24 Rx
muscle spasm #30 tabs
gabapentin 100 mg capsule 100 mg PO TID post-op pain #30 caps 07/19/24 Rx
oxycodone 5 mg tablet 2.5 mg (1/2 x 5 mg) PO Q4HPRN PRN 07/19/24 Rx
severe pain #7 tabs
Review of Systems
-
History Source: Patient
All other systems: Negative unless noted
Respiratory: Trouble Breathing
Musculoskeletal: Other (left upper arm pain)
Physical Exam
Vital Signs
Temp Pulse Resp BP Pulse Ox
98.0 F 89 18 131/73 99
07/23/24 11:21 07/23/24 11:21 07/23/24 11:21 07/23/24 11:21 07/23/24 11:21
Lab Results
07/22/24 20:56
07/22/24 20:56
Troponin I 0.405 ng/ml H* 07/23/24 05:10
Physical Exam
General: Well Developed, Well Nourished and No Apparent Distress
HEENT: Normocephalic and Anicteric
Respiratory: Clear and Non Labored Respirations
Cardiac: Regular Rhythm
Musculoskeletal: No Edema
Skin: Warm and Dry
Neuro: AO x 3
Psych: Calm
Impression / Plan
-
Left arm pain, SOB:
-resolved
-cardiac work-up unremarkable so far as noted- will check focused echo to ensure no LV dysfunction, pericardial effusion, etc.
Abnormal troponins:
-acute, non-ischemic myocardial injury in setting of recent cardiac surgery
-trending down
-check echo
CAD s/p CABG:
-site looks to be well healing
-continue ASA, Plavix, statin, BB
HTN:
-stable
-continue meds and monitor
Visual abnormalities/light-sensitivity:
-neuro consulted
-head CT negative
Data Reviewed
-
EKG: Tracing Personally Visualized and interpreted (SR without acute ischemic abnormality)
CT Scan: Report Reviewed by me (head CT: No acute intracranial abnormality.)
Medical Tests (Nuc Med, Echo etc): Report Reviewed by me (echo 06/09/24: Normal biventricular size and systolic function without regional wall motion abnormality. No significant valvular disease. )
Labs: Labs Reviewed by me
[2024-07-23] MEDS: TOPROL XL 25 MG PO (13:10)
--- NOTE | 2024-07-23 14:48 | CM ---
spoke to pt in [facility] area. he is prev indep, lives with a person he rents a room to. he lives in a asplit level home with 5 steps to enter. he denies any dc planning needs or dme's. plan is for dc to home when medically stable.
== END 2024-07-23 15:53 | disposition home or self-care (01) ==
LOC: CATH-IN 02:30
PROVIDERS: ADMITTING PHYSICIAN Internal Medicine; ATTENDING PHYSICIAN Hospitalist; EMERGENCY PHYSICIAN Student in an Organized Health Care Education/Training Program; FAMILY PHYSICIAN Nurse Practitioner Family; OTHER PHYSICIAN Internal Medicine
DX: R07.9 Chest pain, unspecified (principal); I5A Non-ischemic myocardial injury (non-traumatic); H53.8 Other visual disturbances; H55.09 Other forms of nystagmus; I25.118 Atherosclerotic heart disease of native coronary artery with other forms of angina pectoris; M79.602 Pain in left arm; E11.9 Type 2 diabetes mellitus without complications; E78.00 Pure hypercholesterolemia, unspecified; J98.11 Atelectasis; J90 Pleural effusion, not elsewhere classified; R79.89 Other specified abnormal findings of blood chemistry; I10 Essential (primary) hypertension; D64.9 Anemia, unspecified; I08.1 Rheumatic disorders of both mitral and tricuspid valves; I70.0 Atherosclerosis of aorta; Z85.828 Personal history of other malignant neoplasm of skin; Z79.84 Long term (current) use of oral hypoglycemic drugs; Z79.82 Long term (current) use of aspirin; Z79.02 Long term (current) use of antithrombotics/antiplatelets; Z79.891 Long term (current) use of opiate analgesic; Z95.1 Presence of aortocoronary bypass graft; Z87.891 Personal history of nicotine dependence; Z82.49 Family history of ischemic heart disease and other diseases of the circulatory system
CPT/HCPCS: 93308; 70450; 71046; 80053; 82962; 84484; 85025; 93005; 99285; G0378